=== PATIENT | male | born 1985 | race Caucasian/White ===

== ENCOUNTER 2022-04-22 20:12 | Emergency (ER) | payer SELFPAY ==
[~2022-04-22] VITALS: Ht 185.4 cm; Wt 97.7 kg
[2022-04-22] MEDS ORDERED: iohexol 300mg/ml 100ml inj. ONE (23:33)
[2022-04-23] MEDS ORDERED: ketorolac trometh. 30mg/ml inj. IV ONE
[2022-04-23] MEDS ORDERED: acetaminophen 325mg tablet PO ONE
[2022-04-23] MEDS ORDERED: normal saline 1000ml 1,000 ML IV ONE
[2022-04-23] MEDS ORDERED: AMOX500C2 PO ×2 (00:29→00:32)
[2022-04-23] MEDS ORDERED: ondansetron 4mg rapidly disintigrating tab PO ONE (00:30)
[2022-04-23] MEDS ORDERED: amoxicillin 250mg capsule PO ONE (00:30)
[2022-04-23 00:57] VITALS: BP 127/80
== END 2022-04-23 01:02 | disposition home or self-care (01) ==
LOC: ER 20:13
DX: J02.9 Acute pharyngitis, unspecified (principal); Z88.8 Allergy status to other drugs, medicaments and biological substances; Z88.5 Allergy status to narcotic agent; Z79.899 Other long term (current) drug therapy; Z79.1 Long term (current) use of non-steroidal anti-inflammatories (NSAID); Z79.2 Long term (current) use of antibiotics
CPT/HCPCS: 96374; 99284; J1885; J7030; Q9967

== ENCOUNTER 2022-07-13 00:01 | Emergency (ER) | payer SELFPAY ==
[~2022-07-13] VITALS: Ht 185.4 cm; Wt 88.6 kg
[2022-07-13] MEDS ORDERED: ipratropium/albuterol 3ml nebule NEB ONE (00:15)
[2022-07-13] MEDS ORDERED: dexamethasone inj 6 MG in dextrose 5%-water 100 ML IV ONE (00:25)
[2022-07-13] MEDS ORDERED: LORazepam 2 mg/ml vial IV ONE (00:25)
[2022-07-13] MEDS ORDERED: ALBU8HFA PO (00:52)
[2022-07-13] MEDS: dexamethasone 4mg/ml inj IV SCH ×2 (00:58→01:00)
[2022-07-13 01:15] VITALS: BP 110/70
== END 2022-07-13 01:17 | disposition home or self-care (01) ==
LOC: ER 00:02
DX: J45.901 Unspecified asthma with (acute) exacerbation (principal); Z88.5 Allergy status to narcotic agent; Z88.6 Allergy status to analgesic agent; Z88.8 Allergy status to other drugs, medicaments and biological substances
CPT/HCPCS: 93005; 94640; 96374; 96375; 99284; J1100; J2060; 94760

== ENCOUNTER 2022-08-04 11:28 | Emergency (ER) | payer MEDICAID ==
[~2022-08-04] VITALS: Ht 185.4 cm; Wt 90.9 kg
[~2022-08-04 11:28] MED LIST: ALBU8HFA PO
[2022-08-04] MEDS ORDERED: ipratropium/albuterol 3ml nebule NEB STA (11:47)
[2022-08-04] MEDS ORDERED: magnesium 2GM in 50ml NS 50 ML IV ONE (12:15)
[2022-08-04] MEDS ORDERED: methylPREDNISolone sod succ 125mg/2ml vial IV ONE (12:15)
[2022-08-04] MEDS ORDERED: albuterol 2.5 MG/3 ML nebule CONTNEB PRN (12:35)
[2022-08-04] MEDS ORDERED: ipratropium/albuterol 3ml nebule NEB ONE (13:45)
[2022-08-04] MEDS ORDERED: PRED20TA PO ×2 (14:28)
[2022-08-04] MEDS ORDERED: ALBU6.7H14 INH ×2 (14:28)
[2022-08-04] MEDS ORDERED: FLUT250D IH ×2 (14:28)
--- NOTE | 2022-08-04 14:28 | NUR ---
Paged RT for breathing tx.
[2022-08-04 15:22] VITALS: BP 11/67
[2022-08-07] MEDS ORDERED: NO HOME MEDS (14:50)
[2022-08-11] MEDS ORDERED: LACT1CAP26 PO (14:19)
[2022-08-11] MEDS ORDERED: ALBU6.7H14 INH (14:19)
[2022-08-11] MEDS ORDERED: BUDE10.22 INH (14:19)
[2022-08-11] MEDS ORDERED: CEFD300C3 PO (14:19)
[2022-08-11] MEDS ORDERED: PRED10TA23 PO (14:21)
== END 2022-08-04 15:20 | disposition home or self-care (01) ==
LOC: ER 11:28
DX: J45.909 Unspecified asthma, uncomplicated (principal); Z72.89 Other problems related to lifestyle; Z88.8 Allergy status to other drugs, medicaments and biological substances; Z88.5 Allergy status to narcotic agent; Z79.899 Other long term (current) drug therapy
CPT/HCPCS: 71045; 94640; 94644; 96365; 96375; 99285; J2930; J3475; 94760

== ENCOUNTER 2022-08-06 15:38 | Emergency (ER) | payer MEDICAID ==
[~2022-08-06] VITALS: Ht 185.4 cm; Wt 90.0 kg
[~2022-08-06 15:38] MED LIST changes: +ALBU6.7H14 INH; +FLUT250D IH; +PRED20TA PO
[2022-08-06 15:59] VITALS: BP 124/82
[2022-08-06] MEDS ORDERED: ipratropium/albuterol 3ml nebule NEB ONE (16:05)
[2022-08-06] MEDS ORDERED: predniSONE 20 mg tablet PO ONE (16:50)
[2022-08-06] MEDS ORDERED: CefTRIAXone 1000mg IM Kit (w/lidocaine diluent) IM ONE (16:50)
[2022-08-06] MEDS ORDERED: AMOX-117 PO ×2 (16:56)
[2022-08-06] MEDS: albuterol 2.5 MG/3 ML nebule NEB ONE ×2 (17:04→17:10)
--- NOTE | 2022-08-06 17:05 | NUR ---
Kate xie in ED - 08/06/22 at 1716 by LUCY Unable to administer 5 mg Albuterol SVN treatment. Laura empty- Patient eloped.
[2022-08-07] MEDS ORDERED: NO HOME MEDS (14:50)
[2022-08-11] MEDS ORDERED: ALBU6.7H14 INH (14:19)
[2022-08-11] MEDS ORDERED: CEFD300C3 PO (14:19)
[2022-08-11] MEDS ORDERED: LACT1CAP26 PO (14:19)
[2022-08-11] MEDS ORDERED: BUDE10.22 INH (14:19)
[2022-08-11] MEDS ORDERED: PRED10TA23 PO (14:21)
== END 2022-08-06 17:29 | disposition home or self-care (01) ==
LOC: ER 15:39
DX: J20.9 Acute bronchitis, unspecified (principal); J45.901 Unspecified asthma with (acute) exacerbation; F17.200 Nicotine dependence, unspecified, uncomplicated; Z72.89 Other problems related to lifestyle; Z88.8 Allergy status to other drugs, medicaments and biological substances; Z88.5 Allergy status to narcotic agent; Z79.899 Other long term (current) drug therapy
CPT/HCPCS: 94640; 96372; 99284; J0696; J7512; 94760

== ENCOUNTER 2022-08-22 14:45 | Emergency (ER) | payer MEDICAID ==
[~2022-08-22] VITALS: Ht 185.4 cm; Wt 94.5 kg
[~2022-08-22 14:45] MED LIST changes: -ALBU8HFA PO; +BUDE10.22 INH; +CEFD300C3 PO; -FLUT250D IH; +LACT1CAP26 PO; +PRED10TA23 PO; -PRED20TA PO
[2022-08-22 16:03] LABS: BASOPHILS # (AUTO) 0.1 X10'3 (0-0.2); BASOPHILS % (AUTO) 0.5 % (0-1); EOSINOPHILS % (AUTO) 0.3 % (0-6); HEMATOCRIT 47.3 % (42.0-52.0); HEMOGLOBIN 16.5 g/dl (14.0-17.9); LYMPHOCYTES # (AUTO) 1.9 X10'3 (1.1-4.8); LYMPHOCYTES % (AUTO) 12.6 % (21-51); MEAN CORPUSCULAR HEMOGLOBIN 30.7 PG (27.0-31.0); MEAN CORPUSCULAR HGB CONC 34.8 g/dL (33.0-36.5); MONOCYTES # (AUTO) 0.9 X10'3 (0-0.9); MONOCYTES % (AUTO) 5.7 % (2-12); NEUTROPHILS % (AUTO) 80.9 % (42-75); PLATELET COUNT 240 X10'3 (140-440); RED BLOOD COUNT 5.38 X10'6 (4.70-6.10); RED CELL DISTRIBUTION WIDTH 13.4 % (11.5-14.5); WHITE BLOOD COUNT 14.8 X10'3 (4.5-11.0)
[2022-08-22 16:17] LABS: ALANINE AMINOTRANSFERASE 55 U/L (12-78); ALBUMIN 3.5 G/DL (3.4-5.0); ALBUMIN/GLOBULIN RATIO 1.1 (1.1-1.5); ALKALINE PHOSPHATASE 136 IU/L (46-116); ANION GAP 8 (8-16); ASPARTATE AMINO TRANSFERASE 23 U/L (10-37); BILIRUBIN,TOTAL 1.3 MG/DL (0.1-1.0); BLOOD UREA NITROGEN 18 MG/DL (7-18); CALCIUM 8.8 MG/DL (8.5-10.1); CHLORIDE 102 MMOL/L (99-107); GLUCOSE 201 MG/DL (70-104); SODIUM 135 MMOL/L (135-145); TOTAL CARBON DIOXIDE 24.6 MMOL/L (24-32); TOTAL PROTEIN 6.7 G/DL (6.4-8.2); eGFR > 90 ML/MIN
[2022-08-22 22:50] LABS: CREATINE KINASE 57 U/L (39-308)
[2022-08-23 02:04] VITALS: BP 126/74
== END 2022-08-23 02:11 | disposition home or self-care (01) ==
LOC: ER 14:45
DX: R53.1 Weakness (principal); J45.909 Unspecified asthma, uncomplicated; Z88.5 Allergy status to narcotic agent; Z88.8 Allergy status to other drugs, medicaments and biological substances
CPT/HCPCS: 36415; 71046; 73620; 80053; 82550; 83880; 85025; 93970; 99285

== ENCOUNTER 2022-08-28 04:30 | Emergency (ER) | payer MEDICAID ==
[~2022-08-28] VITALS: Ht 185.4 cm; Wt 90.9 kg
[2022-08-28] MEDS ORDERED: normal saline 1000ML IV soln IVB ONE (04:35)
[2022-08-28] MEDS ORDERED: metoclopramide 5 mg/ml inj IV ONE (04:45)
[2022-08-28] MEDS ORDERED: diphenhydrAMINE 50 mg/ml inj IV ONE (04:45)
[2022-08-28] MEDS ORDERED: LORazepam 2 mg/ml vial IV ONE (04:45)
[2022-08-28] MEDS ORDERED: glycopyrrolate 0.2mg/ml inj IV ONE (04:55)
[2022-08-28 05:20] LABS: BASOPHILS % (AUTO) 0.2 % (0-1); EOSINOPHILS # (AUTO) 0.3 X10'3 (0-0.9); EOSINOPHILS % (AUTO) 1.6 % (0-6); HEMATOCRIT 51.2 % (42.0-52.0); HEMOGLOBIN 17.5 g/dl (14.0-17.9); LYMPHOCYTES # (AUTO) 0.7 X10'3 (1.1-4.8); LYMPHOCYTES % (AUTO) 4.6 % (21-51); MEAN CORPUSCULAR HGB CONC 34.2 g/dL (33.0-36.5); MEAN CORPUSCULAR VOLUME 87.7 FL (78-98); MEAN PLATELET VOLUME 7.3 FL (7.4-10.4); MONOCYTES # (AUTO) 0.6 X10'3 (0-0.9); MONOCYTES % (AUTO) 3.4 % (2-12); NEUTROPHILS # (AUTO) 14.4 X10'3 (1.8-7.7); NEUTROPHILS % (AUTO) 90.2 % (42-75); PLATELET COUNT 200 X10'3 (140-440); RED BLOOD COUNT 5.84 X10'6 (4.70-6.10); RED CELL DISTRIBUTION WIDTH 13.4 % (11.5-14.5)
[2022-08-28 05:34] LABS: ALANINE AMINOTRANSFERASE 36 U/L (12-78); ALBUMIN 3.8 G/DL (3.4-5.0); ALBUMIN/GLOBULIN RATIO 1.2 (1.1-1.5); ALKALINE PHOSPHATASE 132 IU/L (46-116); ANION GAP 13 (8-16); ASPARTATE AMINO TRANSFERASE 31 U/L (10-37); BILIRUBIN,TOTAL 1.2 MG/DL (0.1-1.0); BLOOD UREA NITROGEN 17 MG/DL (7-18); BUN/CREATININE RATIO 22.4 (5.4-32.0); CALCIUM 8.8 MG/DL (8.5-10.1); CHLORIDE 103 MMOL/L (99-107); CREATININE 0.76 MG/DL (0.60-1.10); GLUCOSE 160 MG/DL (70-104); LIPASE 160 U/L (73-393); SODIUM 139 MMOL/L (135-145); TOTAL CARBON DIOXIDE 22.8 MMOL/L (24-32); eGFR > 90 ML/MIN
[2022-08-28 05:36] LABS: POTASSIUM 3.5 MMOL/L (3.5-5.1)
[2022-08-28] MEDS ORDERED: ONDA4TAB12 PO (05:56)
[2022-08-28 06:29] LABS: CLARITY,URINE CLEAR (Clear); COLOR,URINE YELLOW (Yellow); GLUCOSE, URINE NEGATIVE (Neg); KETONES,URINE NEGATIVE (Neg); LEUKOCYTE ESTERASE ,URINE NEGATIVE (Neg); NITRITES, URINE NEGATIVE (Neg); OCCULT BLOOD,URINE NEGATIVE (Neg); PROTEIN,URINE NEGATIVE (Neg); UROBILINOGEN,URINE 0.2 E.U/dL (0.2-1.0)
[2022-08-28 06:32] LABS: UA COLLECTION TYPE URINAL
[2022-08-28 07:01] VITALS: BP 95/54
== END 2022-08-28 07:03 | disposition home or self-care (01) ==
LOC: ER 04:31
DX: R11.2 Nausea with vomiting, unspecified (principal); I10 Essential (primary) hypertension; J45.909 Unspecified asthma, uncomplicated; Z88.1 Allergy status to other antibiotic agents; Z88.5 Allergy status to narcotic agent
CPT/HCPCS: 36415; 80053; 81003; 83690; 84145; 85025; 96361; 96374; 96375; 99284; J1200; J2060; J2765; J3490; J7030

== ENCOUNTER 2022-09-22 21:45 | Emergency (ER) | payer MEDICAID ==
[~2022-09-22] VITALS: Ht 185.4 cm; Wt 91.4 kg
[~2022-09-22 21:45] MED LIST changes: -CEFD300C3 PO; +ONDA4TAB12 PO
[2022-09-22 22:06] VITALS: BP 140/92
[2022-09-22 22:15] LABS: PLATELET COUNT 237 X10'3 (140-440); RED CELL DISTRIBUTION WIDTH 13.3 % (11.5-14.5)
[2022-09-22 22:16] LABS: BASOPHILS # (AUTO) 0.1 X10'3 (0-0.2); EOSINOPHILS # (AUTO) 0.6 X10'3 (0-0.9); EOSINOPHILS % (AUTO) 5.3 % (0-6); HEMATOCRIT 48.4 % (42.0-52.0); HEMOGLOBIN 16.7 g/dl (14.0-17.9); LYMPHOCYTES # (AUTO) 3.2 X10'3 (1.1-4.8); LYMPHOCYTES % (AUTO) 29.1 % (21-51); MEAN CORPUSCULAR HEMOGLOBIN 30.3 PG (27.0-31.0); MEAN CORPUSCULAR HGB CONC 34.6 g/dL (33.0-36.5); MEAN CORPUSCULAR VOLUME 87.7 FL (78-98); MEAN PLATELET VOLUME 7.3 FL (7.4-10.4); MONOCYTES # (AUTO) 0.8 X10'3 (0-0.9); MONOCYTES % (AUTO) 7.2 % (2-12); NEUTROPHILS # (AUTO) 6.2 X10'3 (1.8-7.7); NEUTROPHILS % (AUTO) 57.4 % (42-75); RED BLOOD COUNT 5.51 X10'6 (4.70-6.10); WHITE BLOOD COUNT 10.9 X10'3 (4.5-11.0)
[2022-09-22 22:25] LABS: ALANINE AMINOTRANSFERASE 61 U/L (12-78); ALBUMIN 3.9 G/DL (3.4-5.0); ALBUMIN/GLOBULIN RATIO 1.2 (1.1-1.5); ALKALINE PHOSPHATASE 172 IU/L (46-116); ANION GAP 9 (8-16); ASPARTATE AMINO TRANSFERASE 41 U/L (10-37); BLOOD UREA NITROGEN 15 MG/DL (7-18); BUN/CREATININE RATIO 16.1 (5.4-32.0); CALCIUM 8.9 MG/DL (8.5-10.1); CHLORIDE 104 MMOL/L (99-107); CREATININE 0.93 MG/DL (0.60-1.10); SODIUM 137 MMOL/L (135-145); TOTAL CARBON DIOXIDE 24.5 MMOL/L (24-32); TOTAL PROTEIN 7.1 G/DL (6.4-8.2); eGFR > 90 ML/MIN
[2022-09-22 22:34] LABS: MAGNESIUM 1.6 MG/DL (1.5-2.4)
[2022-09-22 22:35] LABS: GLUCOSE 144 MG/DL (70-104); POTASSIUM 3.2 MMOL/L (3.5-5.1)
[2022-09-22] MEDS ORDERED: PRED10TA PO (23:46)
[2022-09-22] MEDS ORDERED: albuterol 2.5 MG/3 ML nebule NEB ONE (23:50)
[2022-09-22] MEDS ORDERED: predniSONE 20 mg tablet PO ONE (23:50)
[2022-09-22] MEDS ORDERED: POTASSIUM BICARB 20meq eff tab 20 MEQ TABLET.EFF PO STA (23:53)
== END 2022-09-23 00:18 | disposition home or self-care (01) ==
LOC: ER 21:46
DX: J45.901 Unspecified asthma with (acute) exacerbation (principal)
CPT/HCPCS: 36415; 71045; 80053; 83735; 83880; 84484; 85025; 93005; 94640; 99285; J7512

== ENCOUNTER 2022-09-26 11:42 | Emergency (ER) | payer MEDICAID ==
[~2022-09-26] VITALS: Ht 185.4 cm; Wt 95.0 kg
[~2022-09-26 11:42] MED LIST changes: +PRED10TA PO
[2022-09-26 15:35] VITALS: BP 145/76
[2022-09-26] MEDS ORDERED: predniSONE 20 mg tablet PO ONE (15:35)
[2022-09-26] MEDS ORDERED: ipratropium/albuterol 3ml nebule NEB ONE (15:35)
[2022-09-26 16:21] LABS: BASOPHILS # (AUTO) 0.2 X10'3 (0-0.2); BASOPHILS % (AUTO) 1.2 % (0-1); EOSINOPHILS # (AUTO) 0.5 X10'3 (0-0.9); EOSINOPHILS % (AUTO) 3.4 % (0-6); HEMATOCRIT 46.6 % (42.0-52.0); HEMOGLOBIN 16.1 g/dl (14.0-17.9); LYMPHOCYTES % (AUTO) 13.1 % (21-51); MEAN CORPUSCULAR HGB CONC 34.5 g/dL (33.0-36.5); MEAN CORPUSCULAR VOLUME 86.8 FL (78-98); MEAN PLATELET VOLUME 7.5 FL (7.4-10.4); MONOCYTES % (AUTO) 6.4 % (2-12); NEUTROPHILS # (AUTO) 11.4 X10'3 (1.8-7.7); NEUTROPHILS % (AUTO) 75.9 % (42-75); PLATELET COUNT 189 X10'3 (140-440); RED BLOOD COUNT 5.36 X10'6 (4.70-6.10); RED CELL DISTRIBUTION WIDTH 13.1 % (11.5-14.5)
[2022-09-26 16:28] LABS: ALANINE AMINOTRANSFERASE 41 U/L (12-78); ALBUMIN 3.9 G/DL (3.4-5.0); ALBUMIN/GLOBULIN RATIO 1.2 (1.1-1.5); ALKALINE PHOSPHATASE 148 IU/L (46-116); ANION GAP 8 (8-16); ASPARTATE AMINO TRANSFERASE 29 U/L (10-37); BILIRUBIN,TOTAL 2.3 MG/DL (0.1-1.0); BLOOD UREA NITROGEN 9 MG/DL (7-18); BUN/CREATININE RATIO 12.3 (5.4-32.0); CALCIUM 8.9 MG/DL (8.5-10.1); CHLORIDE 103 MMOL/L (99-107); CREATININE 0.73 MG/DL (0.60-1.10); GLUCOSE 106 MG/DL (70-104); POTASSIUM 3.9 MMOL/L (3.5-5.1); SODIUM 137 MMOL/L (135-145); TOTAL CARBON DIOXIDE 26.4 MMOL/L (24-32); TOTAL PROTEIN 7.1 G/DL (6.4-8.2); eGFR > 90 ML/MIN
[2022-09-26] MEDS ORDERED: AMOX-117 PO (16:45)
== END 2022-09-26 16:57 | disposition home or self-care (01) ==
LOC: ER 11:43
DX: J20.9 Acute bronchitis, unspecified (principal); J45.901 Unspecified asthma with (acute) exacerbation; I10 Essential (primary) hypertension; Z72.89 Other problems related to lifestyle; Z88.8 Allergy status to other drugs, medicaments and biological substances; Z88.5 Allergy status to narcotic agent; Z88.6 Allergy status to analgesic agent; Z79.899 Other long term (current) drug therapy
CPT/HCPCS: 36415; 71045; 80053; 85025; 94640; 99284; J7512; 94760

== ENCOUNTER 2022-09-29 07:46 | Emergency (ER) | payer MEDICAID ==
[~2022-09-29] VITALS: Ht 185.4 cm; Wt 97.2 kg
[~2022-09-29 07:46] MED LIST changes: +AMOX-117 PO
[2022-09-29] MEDS ORDERED: bacitracin 15gm ointment TP ONE (09:15)
[2022-09-29] MEDS ORDERED: LIDOCAINE 2%/EPI 1:100,000 inj. Multi-dose 20 ML VIAL IJ ONE (09:15)
[2022-09-29 10:46] VITALS: BP 140/82
== END 2022-09-29 11:47 | disposition home or self-care (01) ==
LOC: ER 07:47
DX: S61.211A Laceration without foreign body of left index finger without damage to nail, initial encounter (principal); I10 Essential (primary) hypertension; J45.909 Unspecified asthma, uncomplicated; Z72.89 Other problems related to lifestyle; Z88.8 Allergy status to other drugs, medicaments and biological substances; Z88.5 Allergy status to narcotic agent; Z79.899 Other long term (current) drug therapy; W22.8XXA Striking against or struck by other objects, initial encounter; Y93.89 Activity, other specified; Y92.89 Other specified places as the place of occurrence of the external cause; Y99.8 Other external cause status
CPT/HCPCS: 12001; 73140; 99283; A6449

== ENCOUNTER 2022-10-21 18:52 | Emergency (ER) | payer MEDICAID ==
[~2022-10-21] VITALS: Ht 185.4 cm; Wt 218.0 kg
[~2022-10-21 18:52] MED LIST changes: -AMOX-117 PO
[2022-10-21 20:05] VITALS: BP 129/86
[2022-10-31] MEDS ORDERED: HYDR-3973 PO (18:51)
== END 2022-10-22 02:13 | disposition left against medical advice (07) ==
LOC: ER 18:52
DX: E11.65 Type 2 diabetes mellitus with hyperglycemia (principal); Z53.21 Procedure and treatment not carried out due to patient leaving prior to being seen by health care provider
CPT/HCPCS: 82948; 99281

== ENCOUNTER 2022-10-31 15:20 | Emergency (ER) | payer MEDICAID ==
[~2022-10-31] VITALS: Ht 185.4 cm; Wt 96.4 kg
[2022-10-31] MEDS ORDERED: ondansetron/PF 4mg/2ml inj IV ONE (15:50)
[2022-10-31] MEDS ORDERED: morphine 4 MG/ML inj SYRINge IV ONE ×2 (15:50→18:50)
[2022-10-31 15:55] LABS: BASOPHILS # (AUTO) 0.1 X10'3 (0-0.2); BASOPHILS % (AUTO) 0.6 % (0-1); EOSINOPHILS # (AUTO) 0.1 X10'3 (0-0.9); EOSINOPHILS % (AUTO) 0.9 % (0-6); HEMOGLOBIN 16.1 g/dl (14.0-17.9); LYMPHOCYTES # (AUTO) 3.4 X10'3 (1.1-4.8); LYMPHOCYTES % (AUTO) 26.4 % (21-51); MEAN CORPUSCULAR HEMOGLOBIN 30.2 PG (27.0-31.0); MEAN CORPUSCULAR HGB CONC 35.1 g/dL (33.0-36.5); MEAN CORPUSCULAR VOLUME 86.1 FL (78-98); MEAN PLATELET VOLUME 6.9 FL (7.4-10.4); MONOCYTES # (AUTO) 0.9 X10'3 (0-0.9); NEUTROPHILS # (AUTO) 8.4 X10'3 (1.8-7.7); NEUTROPHILS % (AUTO) 65.1 % (42-75); PLATELET COUNT 251 X10'3 (140-440); RED BLOOD COUNT 5.34 X10'6 (4.70-6.10); RED CELL DISTRIBUTION WIDTH 12.7 % (11.5-14.5); WHITE BLOOD COUNT 12.8 X10'3 (4.5-11.0)
[2022-10-31] MEDS ORDERED: iohexol 300mg/ml 100ml inj. ONE (16:07)
--- NOTE | 2022-10-31 16:15 | NUR ---
patient to ct.
[2022-10-31 16:16] LABS: ALANINE AMINOTRANSFERASE 38 U/L (12-78); ALBUMIN 4.3 G/DL (3.4-5.0); ALBUMIN/GLOBULIN RATIO 1.5 (1.1-1.5); ALKALINE PHOSPHATASE 123 IU/L (46-116); ANION GAP 12 (8-16); ASPARTATE AMINO TRANSFERASE 31 U/L (10-37); BILIRUBIN,TOTAL 1.2 MG/DL (0.1-1.0); BLOOD UREA NITROGEN 13 MG/DL (7-18); BUN/CREATININE RATIO 12.6 (10.0-20.0); CALCIUM 9.5 MG/DL (8.5-10.1); CHLORIDE 104 MMOL/L (99-107); CREATININE 1.03 MG/DL (0.60-1.10); GLUCOSE 109 MG/DL (70-104); SODIUM 141 MMOL/L (135-145); TOTAL CARBON DIOXIDE 24.6 MMOL/L (24-32); TOTAL PROTEIN 7.2 G/DL (6.4-8.2); eGFR 82 ML/MIN
[2022-10-31 16:17] LABS: POTASSIUM 3.4 MMOL/L (3.5-5.1)
--- NOTE | 2022-10-31 16:36 | NUR ---
patient back in the room from ct.
[2022-10-31] MEDS ORDERED: ketorolac trometh. 30mg/ml inj. IV ONE (17:30)
[2022-10-31 17:40] VITALS: BP 118/71
[2022-10-31] MEDS ORDERED: HYDR-3973 PO ×2 (18:51)
== END 2022-10-31 19:39 | disposition home or self-care (01) ==
LOC: ER 15:20
DX: M54.2 Cervicalgia (principal); M54.50 Low back pain, unspecified; I10 Essential (primary) hypertension; J45.909 Unspecified asthma, uncomplicated; Z72.89 Other problems related to lifestyle; Z88.8 Allergy status to other drugs, medicaments and biological substances; Z88.5 Allergy status to narcotic agent; Z79.899 Other long term (current) drug therapy; V86.99XA Unspecified occupant of other special all-terrain or other off-road motor vehicle injured in nontraffic accident, initial encounter; Y93.89 Activity, other specified; Y92.89 Other specified places as the place of occurrence of the external cause; Y99.8 Other external cause status
CPT/HCPCS: 36415; 70450; 71260; 72125; 74177; 80053; 82948; 85025; 93005; 96374; 96375; 96376; 99285; J1885; J2270; J2405; J3490; L0172; Q9967

== ENCOUNTER 2022-11-02 18:48 | Emergency (ER) | payer MEDICAID ==
[~2022-11-02] VITALS: Ht 185.4 cm; Wt 89.0 kg
[~2022-11-02 18:48] MED LIST changes: +HYDR-3973 PO
[2022-11-02 19:29] VITALS: BP 129/79
[2022-11-03] MEDS ORDERED: HYDR-3972 PO (15:14)
[2022-11-03] MEDS ORDERED: PSEU-259 PO (15:15)
[2022-11-03] MEDS ORDERED: AMOX-580 PO (15:16)
[2022-11-03] MEDS ORDERED: GUAI120L55 PO (15:18)
[2022-11-03] MEDS ORDERED: ATOR20TA66 PO (15:18)
[2022-11-03] MEDS ORDERED: CHOL20003 PO (15:19)
[2022-11-03] MEDS ORDERED: ALBU17AE26 IH (15:20)
[2022-11-03] MEDS ORDERED: ALBU2.5V10 NEB (15:20)
[2022-11-03] MEDS ORDERED: BUDE10.27 IH (15:21)
== END 2022-11-03 00:11 | disposition left against medical advice (07) ==
LOC: ER 18:50
DX: R51.9 Headache, unspecified (principal); Z53.21 Procedure and treatment not carried out due to patient leaving prior to being seen by health care provider
CPT/HCPCS: 99281

== ENCOUNTER 2022-11-03 10:43 | Inpatient (IN) | payer MEDICAID ==
[~2022-11-03] VITALS: Ht 185.4 cm; Wt 89.4 kg
[2022-11-03] MEDS ORDERED: acetaminophen 325mg tablet PO ONE (13:00)
[2022-11-03 13:35] LABS: BASOPHILS # (AUTO) 0.1 X10'3 (0-0.2); BASOPHILS % (AUTO) 1.1 % (0-1); EOSINOPHILS # (AUTO) 0.4 X10'3 (0-0.9); HEMATOCRIT 46.9 % (42.0-52.0); HEMOGLOBIN 16.4 g/dl (14.0-17.9); LYMPHOCYTES # (AUTO) 2.5 X10'3 (1.1-4.8); LYMPHOCYTES % (AUTO) 25.9 % (21-51); MEAN CORPUSCULAR HEMOGLOBIN 30.7 PG (27.0-31.0); MEAN CORPUSCULAR VOLUME 87.5 FL (78-98); MONOCYTES # (AUTO) 0.7 X10'3 (0-0.9); MONOCYTES % (AUTO) 7.1 % (2-12); NEUTROPHILS % (AUTO) 61.9 % (42-75); PLATELET COUNT 231 X10'3 (140-440); RED BLOOD COUNT 5.36 X10'6 (4.70-6.10); RED CELL DISTRIBUTION WIDTH 12.8 % (11.5-14.5); WHITE BLOOD COUNT 9.7 X10'3 (4.5-11.0)
[2022-11-03 13:59] LABS: ALANINE AMINOTRANSFERASE 35 U/L (12-78); ALBUMIN 3.7 G/DL (3.4-5.0); ALBUMIN/GLOBULIN RATIO 1.3 (1.1-1.5); ALKALINE PHOSPHATASE 109 IU/L (46-116); ANION GAP 8 (8-16); ASPARTATE AMINO TRANSFERASE 35 U/L (10-37); BILIRUBIN,TOTAL 1.2 MG/DL (0.1-1.0); BLOOD UREA NITROGEN 12 MG/DL (7-18); BUN/CREATININE RATIO 17.1 (10.0-20.0); CALCIUM 8.7 MG/DL (8.5-10.1); CHLORIDE 104 MMOL/L (99-107); GLUCOSE 103 MG/DL (70-104); POTASSIUM 3.8 MMOL/L (3.5-5.1); SODIUM 137 MMOL/L (135-145); TOTAL PROTEIN 6.6 G/DL (6.4-8.2); eGFR > 90 ML/MIN
[2022-11-03] MEDS ORDERED: iohexol 350MG/ML 100ml bottle IV ONE (15:09)
[2022-11-03] MEDS ORDERED: HYDR-3972 PO (15:14)
[2022-11-03] MEDS ORDERED: PSEU-259 PO (15:15)
[2022-11-03] MEDS ORDERED: AMOX-580 PO (15:16)
[2022-11-03] MEDS ORDERED: GUAI120L55 PO (15:18)
[2022-11-03] MEDS ORDERED: ATOR20TA66 PO (15:18)
[2022-11-03] MEDS ORDERED: CHOL20003 PO (15:19)
[2022-11-03] MEDS ORDERED: ALBU17AE26 IH (15:20)
[2022-11-03] MEDS ORDERED: ALBU2.5V10 NEB (15:20)
[2022-11-03] MEDS ORDERED: BUDE10.27 IH (15:21)
--- NOTE | 2022-11-03 15:34 | NUR ---
Pt to CT at this time
[2022-11-03] MEDS ORDERED: mag hydrox/Alum hydrox/simeth 30ml oral suspension PO PRN (17:10)
[2022-11-03] MEDS ORDERED: magnesium 2GM in 50ml NS 50 ML IV PRN (17:10)
[2022-11-03] MEDS ORDERED: acetaminophen 650mg rectal suppository RC PRN (17:10)
[2022-11-03] MEDS ORDERED: magnesium 4gm in 100ml NS 100 ML IV PRN (17:10)
[2022-11-03] MEDS ORDERED: magnesium Cl slow-release 64mg tablet PO PRN (17:10)
[2022-11-03] MEDS ORDERED: magnesium hydroxide 30ml (MOM) UD suspension PO PRN (17:10)
[2022-11-03] MEDS ORDERED: potassium Cl 20 mEq SR tablet PO PRN ×2 (17:10)
[2022-11-03] MEDS ORDERED: acetaminophen 325mg tablet PO PRN ×2 (17:10)
[2022-11-03] MEDS ORDERED: ondansetron/PF 4mg/2ml inj IV PRN (17:10)
[2022-11-03] MEDS ORDERED: potassium Cl 40MEQ/1/2NS 520ml 520 ML IV PRN (17:10)
[2022-11-03] MEDS ORDERED: HYDROcodone/acetaminophen 5mg/325mg tablet PO PRN (17:10)
[2022-11-03] MEDS: K and/or MAG REPLACEMENT MC SCH (17:44)
[2022-11-03] MEDS: normal saline 1000ml 1,000 ML IV SCH (17:48)
--- NOTE | 2022-11-03 18:21 | NUR ---
Admitting MD to pt bedside at this time
[2022-11-03] MEDS ORDERED: amantadine 100 MG capsule PO ONE (18:30)
[2022-11-03] MEDS ORDERED: methylPREDNISolone sod succ 125mg/2ml vial IV ONE (18:30)
[2022-11-03] MEDS: docusate sod 100mg capsule PO SCH (19:33)
[2022-11-03] MEDS ORDERED: methylPREDNISolone sod succ/PF 40mg inj. IV SCH (20:00)
[2022-11-03] MEDS: albuterol 2.5 MG/3 ML nebule NEB PRN (20:06)
[2022-11-03] MEDS ORDERED: temazepam 15mg capsule PO PRN (21:00)
[2022-11-03 23:20] VITALS: BP 110/52
[2022-11-04] MEDS: HYDROcodone/acetaminophen 10/325mg tab PO PRN ×3 (00:03→20:38)
[2022-11-04 02:00] VITALS: BP 104/61
[2022-11-04] MEDS: normal saline 1000ml 1,000 ML IV SCH ×2 (02:27→15:41)
[2022-11-04] MEDS: methylPREDNISolone sod succ/PF 40mg inj. IV SCH ×4 (02:30→20:40)
[2022-11-04 06:00] VITALS: BP 114/61
--- NOTE | 2022-11-04 06:20 | NUR ---
Patient in room ORTHO 4013. I have received report from Manuela BECERRA and had the opportunity to ask questions and assume patient care.
--- NOTE | 2022-11-04 06:46 | NUR ---
Problems reprioritized. Patient report given, questions answered & plan of care reviewed with xiomara kessler.
[2022-11-04 07:00] LABS: BASOPHILS % (AUTO) 0.2 % (0-1); EOSINOPHILS % (AUTO) 0 % (0-6); HEMATOCRIT 48.1 % (42.0-52.0); HEMOGLOBIN 16.5 g/dl (14.0-17.9); LYMPHOCYTES # (AUTO) 0.8 X10'3 (1.1-4.8); LYMPHOCYTES % (AUTO) 9.1 % (21-51); MEAN CORPUSCULAR HEMOGLOBIN 30.2 PG (27.0-31.0); MEAN CORPUSCULAR HGB CONC 34.3 g/dL (33.0-36.5); MEAN CORPUSCULAR VOLUME 87.8 FL (78-98); MEAN PLATELET VOLUME 7.2 FL (7.4-10.4); MONOCYTES # (AUTO) 0.1 X10'3 (0-0.9); MONOCYTES % (AUTO) 0.9 % (2-12); NEUTROPHILS # (AUTO) 7.6 X10'3 (1.8-7.7); NEUTROPHILS % (AUTO) 89.8 % (42-75); PLATELET COUNT 253 X10'3 (140-440); RED BLOOD COUNT 5.48 X10'6 (4.70-6.10); RED CELL DISTRIBUTION WIDTH 12.5 % (11.5-14.5); WHITE BLOOD COUNT 8.4 X10'3 (4.5-11.0)
[2022-11-04 07:07] LABS: ALANINE AMINOTRANSFERASE 42 U/L (12-78); ALBUMIN 3.7 G/DL (3.4-5.0); ALBUMIN/GLOBULIN RATIO 1.2 (1.1-1.5); ALKALINE PHOSPHATASE 103 IU/L (46-116); ANION GAP 8 (8-16); ASPARTATE AMINO TRANSFERASE 38 U/L (10-37); BILIRUBIN,TOTAL 1.6 MG/DL (0.1-1.0); BLOOD UREA NITROGEN 13 MG/DL (7-18); BUN/CREATININE RATIO 17.1 (10.0-20.0); CALCIUM 9.2 MG/DL (8.5-10.1); CHLORIDE 104 MMOL/L (99-107); CREATININE 0.76 MG/DL (0.60-1.10); GLUCOSE 158 MG/DL (70-104); MAGNESIUM 2.1 MG/DL (1.5-2.4); POTASSIUM 4.5 MMOL/L (3.5-5.1); SODIUM 138 MMOL/L (135-145); TOTAL CARBON DIOXIDE 26.4 MMOL/L (24-32); TOTAL PROTEIN 6.7 G/DL (6.4-8.2); eGFR > 90 ML/MIN
[2022-11-04] MEDS: docusate sod 100mg capsule PO SCH (07:45)
[2022-11-04] MEDS: K and/or MAG REPLACEMENT MC SCH ×2 (08:00→20:00)
[2022-11-04] MEDS ORDERED: amantadine 100 MG capsule PO SCH (08:00)
[2022-11-04] MEDS: albuterol 2.5 MG/3 ML nebule NEB PRN ×2 (08:57→21:20)
[2022-11-04 10:00] VITALS: BP 114/66
--- NOTE | 2022-11-04 10:46 | NUR ---
AGER ID: [phone] MESSAGE: [id number] Sami Echols, PT DMII, on regular diet. Changing from regular to carb control diet. Please notify if not OK. Thanks. Christine [phone]
--- NOTE | 2022-11-04 11:12 | NUR ---
Patient call light was on and when answered, patient stated that he is suppose to work with PT. However, he doesn't feel comfortable with males due to childhood trama.
[2022-11-04] MEDS ORDERED: levoFLOXACIN 500mg tablet PO ONE (12:30)
--- NOTE | 2022-11-04 13:28 | NUR ---
PAGER ID: [phone] MESSAGE: [id number] Sami Echols Unable to perform MRI due to possible foreign body, causes shooting pain/numbness to LFA. Christine [phone]
[2022-11-04] MEDS: ondansetron 4mg rapidly disintigrating tab PO PRN ×2 (13:58)
--- NOTE | 2022-11-04 14:02 | NUR ---
HOSE TURNER documentation: I have reviewed and agree with all interventions, assessments performed and documented by Christine SHARPE.
--- NOTE | 2022-11-04 14:14 | NUR ---
Orientee documentation: I have reviewed and agree with all interventions, assessments performed and documented by Christine SHARPE.
[2022-11-04] MEDS: amantadine 100 MG capsule PO SCH (16:56)
[2022-11-04 18:00] VITALS: BP 115/64
[2022-11-04 22:00] VITALS: BP 109/63
[2022-11-05] MEDS: methylPREDNISolone sod succ/PF 40mg inj. IV SCH ×2 (02:42→07:58)
--- NOTE | 2022-11-05 03:40 | NUR ---
agree with assessment by ANNEMARIE Pantoja.
[2022-11-05 06:00] VITALS: BP 107/54
--- NOTE | 2022-11-05 06:30 | NUR ---
Patient in room ORTHO 4013. I have received report from Scarlett BECERRA and had the opportunity to ask questions and assume patient care. Addendum: 11/05/22 at 0647 by Gretchen Caal LVN ANNEMARIE
--- NOTE | 2022-11-05 06:31 | NUR ---
gave report to Gretchen SHARPE
[2022-11-05 07:40] LABS: BASOPHILS % (AUTO) 0.3 % (0-1); EOSINOPHILS % (AUTO) 0 % (0-6); HEMATOCRIT 46.7 % (42.0-52.0); LYMPHOCYTES # (AUTO) 1.1 X10'3 (1.1-4.8); LYMPHOCYTES % (AUTO) 5.7 % (21-51); MEAN CORPUSCULAR HEMOGLOBIN 30.4 PG (27.0-31.0); MEAN CORPUSCULAR HGB CONC 34.3 g/dL (33.0-36.5); MEAN CORPUSCULAR VOLUME 88.5 FL (78-98); MEAN PLATELET VOLUME 7.3 FL (7.4-10.4); MONOCYTES # (AUTO) 0.4 X10'3 (0-0.9); MONOCYTES % (AUTO) 2.1 % (2-12); NEUTROPHILS # (AUTO) 17.9 X10'3 (1.8-7.7); NEUTROPHILS % (AUTO) 91.9 % (42-75); PLATELET COUNT 253 X10'3 (140-440); RED BLOOD COUNT 5.27 X10'6 (4.70-6.10); RED CELL DISTRIBUTION WIDTH 13.1 % (11.5-14.5); WHITE BLOOD COUNT 19.5 X10'3 (4.5-11.0)
[2022-11-05 08:00] LABS: ALANINE AMINOTRANSFERASE 42 U/L (12-78); ALBUMIN 3.8 G/DL (3.4-5.0); ALBUMIN/GLOBULIN RATIO 1.3 (1.1-1.5); ALKALINE PHOSPHATASE 101 IU/L (46-116); ANION GAP 9 (8-16); ASPARTATE AMINO TRANSFERASE 24 U/L (10-37); BILIRUBIN,TOTAL 1.2 MG/DL (0.1-1.0); BLOOD UREA NITROGEN 13 MG/DL (7-18); BUN/CREATININE RATIO 18.3 (10.0-20.0); CALCIUM 8.9 MG/DL (8.5-10.1); CHLORIDE 105 MMOL/L (99-107); CREATININE 0.71 MG/DL (0.60-1.10); GLUCOSE 172 MG/DL (70-104); MAGNESIUM 2.3 MG/DL (1.5-2.4); POTASSIUM 4.3 MMOL/L (3.5-5.1); SODIUM 139 MMOL/L (135-145); TOTAL CARBON DIOXIDE 24.6 MMOL/L (24-32); TOTAL PROTEIN 6.8 G/DL (6.4-8.2); eGFR > 90 ML/MIN
[2022-11-05] MEDS: K and/or MAG REPLACEMENT MC SCH ×2 (08:00→19:31)
[2022-11-05] MEDS: atorvastatin 20mg tablet PO SCH (08:01)
[2022-11-05] MEDS: amantadine 100 MG capsule PO SCH ×2 (08:01→21:08)
[2022-11-05] MEDS: HYDROcodone/acetaminophen 10/325mg tab PO PRN ×3 (08:02→22:26)
--- NOTE | 2022-11-05 09:50 | NUR ---
PAGER ID: [phone] MESSAGE: [id number]: Tenzin Echols- Pt newly diagnosed DM blood glucose 175, no orders for insulin. Pt does not take it at home. CRAIG Godinez [phone]
[2022-11-05 10:00] VITALS: BP 105/55
[2022-11-05] MEDS ORDERED: insulin Lispro (HumaLOG) vial - multi-dose SQ SCH (11:00)
[2022-11-05] MEDS ORDERED: dextrose 50%-water 50ml dispensing syringe IV PRN ×2 (11:00)
[2022-11-05] MEDS ORDERED: MESSAGE TO PHARMACY PO ONE (11:00)
[2022-11-05] MEDS ORDERED: DEXTROSE 15 GM of carb/4 tabs (each vial/BOTTLE has 4 tablets) PO PRN ×2 (11:00)
[2022-11-05] MEDS ORDERED: ibuprofen tablet 400 MG TABLET PO PRN (11:00)
[2022-11-05] MEDS ORDERED: glucagon, human recombinant 1mg kit SUBCUT PRN (11:00)
[2022-11-05] MEDS: levoFLOXACIN 500mg tablet PO SCH (11:24)
[2022-11-05] MEDS: albuterol 2.5 MG/3 ML nebule NEB SCH ×2 (11:41→15:55)
--- NOTE | 2022-11-05 11:41 | NUR ---
pt. refused 1200 svn
[2022-11-05 13:55] LABS: HEMOGLOBIN A1C 5.8 % (4.5-6.2)
[2022-11-05 14:00] VITALS: BP 111/63
[2022-11-05] MEDS ORDERED: predniSONE 20 mg tablet PO ONE (16:00)
[2022-11-05 18:00] VITALS: BP 118/58
--- NOTE | 2022-11-05 18:00 | NUR ---
HERB DOCTOR documentation: I have reviewed and agree with all interventions, assessments performed and documented by Gretchen SHARPE.
--- NOTE | 2022-11-05 18:00 | NUR ---
Patient in room ORTHO 4013. I have received report from Gretchen SHARPE and had the opportunity to ask questions and assume patient care.
--- NOTE | 2022-11-05 18:32 | NUR ---
Problems reprioritized. Patient report given, questions answered & plan of care reviewed with Elizabeth BECERRA.
[2022-11-05] MEDS: insulin glargine (Lantus) pen - multi-dose SQ SCH (21:00)
[2022-11-05 22:00] VITALS: BP 113/57
--- NOTE | 2022-11-06 03:39 | NUR ---
Pt was assessed at shift change. Pt was educated about all medications administered and side effects. Pt complained of head pain of 8/10 and [place] 10 was administered, during reassessment pt stated the pain level to be 5/10. He is now resting comfortably
--- NOTE | 2022-11-06 05:38 | NUR ---
Problems reprioritized. Patient report given, questions answered & plan of care reviewed with Elli BECERRA.
[2022-11-06 06:00] VITALS: BP 96/56
[2022-11-06 06:49] LABS: BASOPHILS % (AUTO) 0.2 % (0-1); EOSINOPHILS % (AUTO) 0.1 % (0-6); HEMATOCRIT 47.7 % (42.0-52.0); HEMOGLOBIN 16.2 g/dl (14.0-17.9); LYMPHOCYTES # (AUTO) 2.4 X10'3 (1.1-4.8); MEAN CORPUSCULAR HEMOGLOBIN 30.3 PG (27.0-31.0); MEAN CORPUSCULAR HGB CONC 34.1 g/dL (33.0-36.5); MEAN CORPUSCULAR VOLUME 88.9 FL (78-98); MEAN PLATELET VOLUME 7.3 FL (7.4-10.4); MONOCYTES % (AUTO) 5.6 % (2-12); NEUTROPHILS # (AUTO) 14.9 X10'3 (1.8-7.7); NEUTROPHILS % (AUTO) 81.1 % (42-75); PLATELET COUNT 264 X10'3 (140-440); RED BLOOD COUNT 5.36 X10'6 (4.70-6.10); RED CELL DISTRIBUTION WIDTH 13.1 % (11.5-14.5); WHITE BLOOD COUNT 18.4 X10'3 (4.5-11.0)
[2022-11-06 07:05] LABS: ALANINE AMINOTRANSFERASE 43 U/L (12-78); ALBUMIN 3.7 G/DL (3.4-5.0); ALBUMIN/GLOBULIN RATIO 1.2 (1.1-1.5); ALKALINE PHOSPHATASE 95 IU/L (46-116); ANION GAP 10 (8-16); ASPARTATE AMINO TRANSFERASE 27 U/L (10-37); BILIRUBIN,TOTAL 1.1 MG/DL (0.1-1.0); BLOOD UREA NITROGEN 15 MG/DL (7-18); BUN/CREATININE RATIO 20.3 (10.0-20.0); CALCIUM 8.8 MG/DL (8.5-10.1); CHLORIDE 102 MMOL/L (99-107); CREATININE 0.74 MG/DL (0.60-1.10); GLUCOSE 119 MG/DL (70-104); POTASSIUM 3.9 MMOL/L (3.5-5.1); SODIUM 137 MMOL/L (135-145); TOTAL PROTEIN 6.7 G/DL (6.4-8.2); eGFR > 90 ML/MIN
--- NOTE | 2022-11-06 07:25 | NUR ---
Patient in room ORTHO 4013. I have received report from HERNAN Cameron and had the opportunity to ask questions and assume patient care.
[2022-11-06] MEDS: K and/or MAG REPLACEMENT MC SCH ×2 (08:00→18:33)
[2022-11-06] MEDS: atorvastatin 20mg tablet PO SCH (08:38)
[2022-11-06] MEDS: amantadine 100 MG capsule PO SCH ×2 (08:39→19:59)
[2022-11-06] MEDS: predniSONE 20 mg tablet PO SCH (08:39)
[2022-11-06] MEDS: HYDROcodone/acetaminophen 10/325mg tab PO PRN ×3 (08:40→21:11)
[2022-11-06] MEDS: albuterol 2.5 MG/3 ML nebule NEB PRN ×2 (09:00→19:30)
[2022-11-06 10:00] VITALS: BP 116/65
[2022-11-06] MEDS: levoFLOXACIN 500mg tablet PO SCH (11:26)
[2022-11-06 14:00] VITALS: BP 123/52
[2022-11-06] MEDS ORDERED: LORazepam 0.5 MG tablet PO PRN (17:05)
[2022-11-06 18:00] VITALS: BP 122/74
--- NOTE | 2022-11-06 18:00 | NUR ---
Patient in room ORTHO 4013. I have received report from Elli BECERRA and had the opportunity to ask questions and assume patient care.
--- NOTE | 2022-11-06 18:48 | NUR ---
This afternoon Tenzin requested to take a shower. He was situated on a shower chair and allowed to take a shower. Patient reports that while he was on the shower chair he leaned forward and barely hit his head on the side rail. He cannot remember why he leaned forward. He does not report pain, there are no scratches or bruising. He reports he barely touched the rail.
--- NOTE | 2022-11-06 18:50 | NUR ---
Problems reprioritized. Patient report given, questions answered & plan of care reviewed with HERNAN Cameron.
[2022-11-06] MEDS: insulin glargine (Lantus) pen - multi-dose SQ SCH (21:00)
[2022-11-06 23:39] VITALS: BP 114/71
--- NOTE | 2022-11-07 05:07 | NUR ---
Pt has been pleasant this shift with minimal requests from staff. Fillmore was administered at 2100 for head pain, lights were turned off, and tv turned off to minimize any over stimulation. Pt has been sleeping and comfortable all shift.
--- NOTE | 2022-11-07 05:47 | NUR ---
Problems reprioritized. Patient report given, questions answered & plan of care reviewed with Elli BECERRA.
--- NOTE | 2022-11-07 07:17 | NUR ---
Patient in room ORTHO 4013. I have received report from HERNAN Cameron and had the opportunity to ask questions and assume patient care.
[2022-11-07 07:40] LABS: BASOPHILS # (AUTO) 0.1 X10'3 (0-0.2); BASOPHILS % (AUTO) 0.7 % (0-1); EOSINOPHILS # (AUTO) 0.1 X10'3 (0-0.9); EOSINOPHILS % (AUTO) 0.8 % (0-6); HEMATOCRIT 49.1 % (42.0-52.0); HEMOGLOBIN 16.6 g/dl (14.0-17.9); LYMPHOCYTES # (AUTO) 3.7 X10'3 (1.1-4.8); LYMPHOCYTES % (AUTO) 29.5 % (21-51); MEAN CORPUSCULAR HEMOGLOBIN 29.9 PG (27.0-31.0); MEAN CORPUSCULAR HGB CONC 33.8 g/dL (33.0-36.5); MEAN CORPUSCULAR VOLUME 88.5 FL (78-98); MEAN PLATELET VOLUME 7.3 FL (7.4-10.4); MONOCYTES # (AUTO) 0.9 X10'3 (0-0.9); MONOCYTES % (AUTO) 6.9 % (2-12); NEUTROPHILS # (AUTO) 7.8 X10'3 (1.8-7.7); NEUTROPHILS % (AUTO) 62.1 % (42-75); PLATELET COUNT 226 X10'3 (140-440); RED BLOOD COUNT 5.55 X10'6 (4.70-6.10); WHITE BLOOD COUNT 12.5 X10'3 (4.5-11.0)
[2022-11-07 07:44] LABS: ALANINE AMINOTRANSFERASE 38 U/L (12-78); ALBUMIN 3.6 G/DL (3.4-5.0); ALBUMIN/GLOBULIN RATIO 1.2 (1.1-1.5); ALKALINE PHOSPHATASE 97 IU/L (46-116); ANION GAP 9 (8-16); ASPARTATE AMINO TRANSFERASE 23 U/L (10-37); BILIRUBIN,TOTAL 0.9 MG/DL (0.1-1.0); BLOOD UREA NITROGEN 15 MG/DL (7-18); BUN/CREATININE RATIO 18.1 (10.0-20.0); CALCIUM 8.9 MG/DL (8.5-10.1); CHLORIDE 104 MMOL/L (99-107); CREATININE 0.83 MG/DL (0.60-1.10); GLUCOSE 100 MG/DL (70-104); MAGNESIUM 2.2 MG/DL (1.5-2.4); POTASSIUM 3.7 MMOL/L (3.5-5.1); SODIUM 140 MMOL/L (135-145); TOTAL CARBON DIOXIDE 27.1 MMOL/L (24-32); TOTAL PROTEIN 6.6 G/DL (6.4-8.2); eGFR > 90 ML/MIN
[2022-11-07] MEDS: K and/or MAG REPLACEMENT MC SCH ×2 (08:00→19:18)
[2022-11-07] MEDS: predniSONE 20 mg tablet PO SCH (08:00)
[2022-11-07] MEDS: amantadine 100 MG capsule PO SCH ×2 (09:19→19:47)
[2022-11-07] MEDS: atorvastatin 20mg tablet PO SCH (09:21)
--- NOTE | 2022-11-07 09:56 | NUR ---
DM consult: Per [facility] pt with newly diagnosed T2DM however no documented h/o DM at previous admit in July with A1c 5.6% 08/07 and current A1c is 5.8% which does not meet diabetes diagnostic criteria per ADA guidelines. Pt admit for postconcussive syndrome and asthma exacerbation. Currently on a CHO controlled diet and eating well, documented with 100% PO intake of all meals with the exception of 75% PO intake of dinner 11/06. Despite good PO intake pt not meeting estimated nutrient needs d/t restrictive diet. Paged with recommendation to liberalize to regular diet given current A1c and A1c hx with pt receiving Prednisone and not requiring insulin coverage since admit. D/w dietary to send additional protein with meals for satiety which may be discontinued if diet is liberalized to regular. LBM 11/06. Will continue to follow and monitor need for further nutrition intervention. Recommendations: 1) Liberalize to regular diet; A1c 5.8% does not meet criteria for DM dx per ADA guidelines and pt not requiring insulin coverage while on Prednisone 2) Doubles eggs WB, double meat BIDLD for satiety and to assist with meeting estimated nutrient needs, may discontinue if diet is liberalized to regular 3) Bowel care PRN 4) Weekly scaled weights Addendum: 11/07/22 at [address] Amended: Links added.
[2022-11-07 10:00] VITALS: BP 116/56
[2022-11-07] MEDS: levoFLOXACIN 500mg tablet PO SCH (11:04)
[2022-11-07 14:00] VITALS: BP 114/72
[2022-11-07] MEDS: albuterol 2.5 MG/3 ML nebule NEB PRN ×2 (15:00→20:57)
[2022-11-07 18:00] VITALS: BP 116/59
--- NOTE | 2022-11-07 18:25 | NUR ---
Problems reprioritized. Patient report given, questions answered & plan of care reviewed with HERNAN Short.
[2022-11-07] MEDS: insulin glargine (Lantus) pen - multi-dose SQ SCH (19:49)
--- NOTE | 2022-11-07 20:08 | NUR ---
Called Dr. Flood - got order to DC accuchecks since A1C 5.8
[2022-11-07 22:00] VITALS: BP 116/69
[2022-11-07] MEDS: HYDROcodone/acetaminophen 10/325mg tab PO PRN (22:02)
--- NOTE | 2022-11-08 06:27 | NUR ---
Patient in room ORTHO 4013. I have received report from Deja BECERRA and had the opportunity to ask questions and assume patient care.
[2022-11-08 06:31] LABS: BASOPHILS % (AUTO) 0.3 % (0-1); EOSINOPHILS # (AUTO) 0.2 X10'3 (0-0.9); EOSINOPHILS % (AUTO) 1.1 % (0-6); HEMOGLOBIN 16.7 g/dl (14.0-17.9); LYMPHOCYTES # (AUTO) 3.6 X10'3 (1.1-4.8); MEAN CORPUSCULAR HEMOGLOBIN 30.8 PG (27.0-31.0); MEAN CORPUSCULAR HGB CONC 34.8 g/dL (33.0-36.5); MEAN CORPUSCULAR VOLUME 88.7 FL (78-98); MONOCYTES # (AUTO) 0.9 X10'3 (0-0.9); MONOCYTES % (AUTO) 6.8 % (2-12); NEUTROPHILS # (AUTO) 9.1 X10'3 (1.8-7.7); NEUTROPHILS % (AUTO) 65.8 % (42-75); PLATELET COUNT 217 X10'3 (140-440); RED BLOOD COUNT 5.41 X10'6 (4.70-6.10); RED CELL DISTRIBUTION WIDTH 12.9 % (11.5-14.5); WHITE BLOOD COUNT 13.8 X10'3 (4.5-11.0)
--- NOTE | 2022-11-08 06:33 | NUR ---
Problems reprioritized. Patient report given, questions answered & plan of care reviewed with ANNEMARIE Fontana.
[2022-11-08 07:01] LABS: ANION GAP 11 (8-16); BLOOD UREA NITROGEN 14 MG/DL (7-18); BUN/CREATININE RATIO 20.3 (10.0-20.0); CHLORIDE 103 MMOL/L (99-107); CREATININE 0.69 MG/DL (0.60-1.10); GLUCOSE 106 MG/DL (70-104); POTASSIUM 3.6 MMOL/L (3.5-5.1); SODIUM 138 MMOL/L (135-145)
[2022-11-08 07:02] LABS: ALANINE AMINOTRANSFERASE 37 U/L (12-78); ALBUMIN 3.6 G/DL (3.4-5.0); ALBUMIN/GLOBULIN RATIO 1.2 (1.1-1.5); ALKALINE PHOSPHATASE 100 IU/L (46-116); ASPARTATE AMINO TRANSFERASE 27 U/L (10-37); BILIRUBIN,TOTAL 1.1 MG/DL (0.1-1.0); CALCIUM 8.8 MG/DL (8.5-10.1); TOTAL PROTEIN 6.6 G/DL (6.4-8.2); eGFR > 90 ML/MIN
[2022-11-08] MEDS: albuterol 2.5 MG/3 ML nebule NEB PRN (07:02)
--- NOTE | 2022-11-08 07:47 | NUR ---
Pt BS obtained per pt request. Pt informed me his most recent A1C at his primary was "8 something" and was told he was diabetic. Pt was unable to tell me what his BS levels are at home and how long ago that A1C from his primary was taken. Pt was educated on the AHA guidelines to DM II and that his current A1C and previous A1C from 07/2022 and blood sugars levels indicate the diabetes he may have been diagnosed with is now well controlled with his diet and require no interventions from staff currently. Pt was educated on hypo/hyperglycemic s/s to report to staff if he experiences them. Pt was informed staff will not be taking AC/HS BS on him anymore per MD orders, unless pt becomes symptomatic.
[2022-11-08] MEDS: K and/or MAG REPLACEMENT MC SCH (08:00)
[2022-11-08] MEDS: amantadine 100 MG capsule PO SCH (08:10)
[2022-11-08] MEDS: atorvastatin 20mg tablet PO SCH (08:11)
[2022-11-08] MEDS: predniSONE 20 mg tablet PO SCH (08:11)
[2022-11-08] MEDS ORDERED: LEVO-65 PO (11:00)
[2022-11-08] MEDS ORDERED: AMA100C PO (11:00)
[2022-11-08] MEDS: levoFLOXACIN 500mg tablet PO SCH (11:00)
[2022-11-08] MEDS ORDERED: PRED20TA PO (11:00)
--- NOTE | 2022-11-08 13:39 | NUR ---
PAGER ID: [phone] MESSAGE: [phone] [facility] not filling amantadine, please call akin [phone]
--- NOTE | 2022-11-08 14:24 | NUR ---
pt dc to home via private vehicle. Pt PIV dc prior to dc with no complications. Pt alert, oriented, and stable at time of discharge. Pt verbally agreeable to all dc instructions and educations provided. Prescriptions escripted to [address]. pt escorted out of facility by staff with FWW.
--- NOTE | 2022-11-08 18:11 | NUR ---
MOTTLER OPERATOR documentation: I have reviewed and agree with all interventions, assessments performed and documented by Natali SHARPE, no new finding noted.
== END 2022-11-08 14:23 | disposition home or self-care (01) | DRG 54 ==
LOC: ER 10:44 → ED HOLD 17:11 → ORTHO 4S 23:18
PROVIDERS: ADMIT Family Medicine; ATTEND Family Medicine
PROC: B3251ZZ Computerized Tomography (CT Scan) of Bilateral Common Carotid Arteries using Low Osmolar Contrast (ICD-10-PCS; principal; 2022-11-03)
PROC: B32G1ZZ Computerized Tomography (CT Scan) of Bilateral Vertebral Arteries using Low Osmolar Contrast (ICD-10-PCS; 2022-11-03)
PROC: B32R1ZZ Computerized Tomography (CT Scan) of Intracranial Arteries using Low Osmolar Contrast (ICD-10-PCS; 2022-11-03)
PROC: B3281ZZ Computerized Tomography (CT Scan) of Bilateral Internal Carotid Arteries using Low Osmolar Contrast (ICD-10-PCS; 2022-11-03)
DX: F07.81 Postconcussional syndrome (principal); J45.901 Unspecified asthma with (acute) exacerbation; S09.90XA Unspecified injury of head, initial encounter; R73.03 Prediabetes; E78.5 Hyperlipidemia, unspecified; I10 Essential (primary) hypertension; M54.9 Dorsalgia, unspecified; Z88.8 Allergy status to other drugs, medicaments and biological substances; Z79.899 Other long term (current) drug therapy; Y93.89 Activity, other specified; Y92.89 Other specified places as the place of occurrence of the external cause; Y99.8 Other external cause status; V86.55XA Driver of 3- or 4- wheeled all-terrain vehicle (ATV) injured in nontraffic accident, initial encounter
CPT/HCPCS: 36415; 70450; 70496; 70498; 71046; 72125; 72131; 73030; 73090; 80053; 82948; 83036; 83735; 85025; 87081; 94640; 94760; 97110; 97116; 97161; 97530; 99285; A6258; G0378; J1815; J2920; J2930; J3490; J7030; J7512; Q9967

== ENCOUNTER 2022-11-11 04:33 | Emergency (ER) | payer MEDICAID ==
[~2022-11-11] VITALS: Ht 185.4 cm; Wt 93.2 kg
[~2022-11-11 04:33] MED LIST changes: +ALBU17AE26 IH; +ALBU2.5V10 NEB; -ALBU6.7H14 INH; +AMA100C PO; +ATOR20TA66 PO; -BUDE10.22 INH; +BUDE10.27 IH; +CHOL20003 PO; -HYDR-3973 PO; -LACT1CAP26 PO; +LEVO-65 PO; -ONDA4TAB12 PO; -PRED10TA PO; -PRED10TA23 PO; +PRED20TA PO
[2022-11-11] MEDS ORDERED: proCHLORperazine 10 MG/2 ml inj IV ONE (05:10)
[2022-11-11] MEDS ORDERED: ketorolac trometh. 30mg/ml inj. IV ONE (05:10)
[2022-11-11] MEDS ORDERED: SUMAtriptan succ. 6 MG/0.5ml vial SQ ONE (05:10)
[2022-11-11] MEDS ORDERED: normal saline 1000ml 1,000 ML IV ONE (05:10)
[2022-11-11] MEDS ORDERED: acetaminophen 325mg tablet PO ONE (05:10)
[2022-11-11] MEDS ORDERED: diphenhydrAMINE 50 mg/ml inj IV ONE (05:10)
[2022-11-11 07:11] VITALS: BP 108/58
[2022-11-12] MEDS ORDERED: HYDR-3972 PO (19:02)
[2022-11-12] MEDS ORDERED: PSEU-259 PO (19:03)
[2022-11-12] MEDS ORDERED: GUAI120L55 PO (19:04)
== END 2022-11-11 07:13 | disposition home or self-care (01) ==
LOC: ER 04:34
DX: G43.909 Migraine, unspecified, not intractable, without status migrainosus (principal); I10 Essential (primary) hypertension; J45.909 Unspecified asthma, uncomplicated; Z88.8 Allergy status to other drugs, medicaments and biological substances; Z88.6 Allergy status to analgesic agent; Z79.899 Other long term (current) drug therapy; Z91.011 Allergy to milk products
CPT/HCPCS: 96361; 96372; 96374; 96375; 99284; J0780; J1200; J1885; J3030; J7030

== ENCOUNTER 2022-11-12 14:00 | Inpatient (IN) | payer MEDICAID ==
[~2022-11-12] VITALS: Ht 185.4 cm; Wt 96.0 kg
[2022-11-12] MEDS ORDERED: normal saline 1000ml 1,000 ML IV ONE ×3 (14:45)
[2022-11-12] MEDS ORDERED: CefTRIAXone 2gm/D5W 50ml BAG 50 ML IV ONE (14:45)
[2022-11-12] MEDS ORDERED: acetaminophen 325mg tablet PO ONE (14:45)
[2022-11-12] MEDS ORDERED: azithromycin/NS 500mg/250ml 250 ML IV ONE (14:45)
[2022-11-12 14:47] LABS: BASOPHILS % (AUTO) 0.2 % (0-1); LYMPHOCYTES # (AUTO) 0.7 X10'3 (1.1-4.8); MEAN CORPUSCULAR HGB CONC 33.9 g/dL (33.0-36.5); WHITE BLOOD COUNT 21.7 X10'3 (4.5-11.0)
[2022-11-12 14:48] LABS: CLARITY,URINE CLEAR (Clear); COLOR,URINE YELLOW (Yellow); GLUCOSE, URINE NEGATIVE (Neg); KETONES,URINE >=80 mg/dl (Neg); LEUKOCYTE ESTERASE ,URINE NEGATIVE (Neg); NITRITES, URINE NEGATIVE (Neg); OCCULT BLOOD,URINE NEGATIVE (Neg); PROTEIN,URINE NEGATIVE (Neg)
[2022-11-12 14:49] LABS: UA COLLECTION TYPE URINAL
[2022-11-12 14:51] LABS: EOSINOPHILS % (AUTO) 0.1 % (0-6); HEMATOCRIT 47.5 % (42.0-52.0); HEMOGLOBIN 16.1 g/dl (14.0-17.9); MEAN CORPUSCULAR HEMOGLOBIN 29.9 PG (27.0-31.0); MEAN CORPUSCULAR VOLUME 88.1 FL (78-98); MEAN PLATELET VOLUME 7.2 FL (7.4-10.4); MONOCYTES # (AUTO) 1.3 X10'3 (0-0.9); MONOCYTES % (AUTO) 5.8 % (2-12); NEUTROPHILS # (AUTO) 19.7 X10'3 (1.8-7.7); NEUTROPHILS % (AUTO) 90.9 % (42-75); PLATELET COUNT 195 X10'3 (140-440); RED CELL DISTRIBUTION WIDTH 12.8 % (11.5-14.5)
[2022-11-12] MEDS ORDERED: albuterol 2.5 MG/3 ML nebule NEB ONE (15:00)
[2022-11-12] MEDS ORDERED: methylPREDNISolone sod succ 125mg/2ml vial IV ONE (15:00)
[2022-11-12 15:08] LABS: ALANINE AMINOTRANSFERASE 199 U/L (12-78); ALBUMIN 3.5 G/DL (3.4-5.0); ALKALINE PHOSPHATASE 112 IU/L (46-116); ANION GAP 10 (8-16); ASPARTATE AMINO TRANSFERASE 109 U/L (10-37); BILIRUBIN,TOTAL 5.1 MG/DL (0.1-1.0); BLOOD UREA NITROGEN 12 MG/DL (7-18); BUN/CREATININE RATIO 15.2 (10.0-20.0); CALCIUM 8.7 MG/DL (8.5-10.1); CHLORIDE 100 MMOL/L (99-107); CREATININE 0.79 MG/DL (0.60-1.10); GLUCOSE 129 MG/DL (70-104); POTASSIUM 3.8 MMOL/L (3.5-5.1); SODIUM 133 MMOL/L (135-145); eGFR > 90 ML/MIN
[2022-11-12 15:12] LABS: TOTAL PROTEIN 6.9 G/DL (6.4-8.2)
--- NOTE | 2022-11-12 15:17 | NUR ---
RT AT BEDSIDE GIVING TX. EKG WILL BE DONE ONCE TX IS COMPLETE.
[2022-11-12] MEDS ORDERED: VANCOmycin 1250MG/NS 250ml Bag 250 ML IV SCH (18:19)
[2022-11-12] MEDS ORDERED: potassium Cl 20 mEq SR tablet PO PRN ×2 (18:20)
[2022-11-12] MEDS ORDERED: magnesium Cl slow-release 64mg tablet PO PRN (18:20)
[2022-11-12] MEDS ORDERED: diphenhydrAMINE 25mg capsule PO PRN (18:20)
[2022-11-12] MEDS ORDERED: magnesium 4gm in 100ml NS 100 ML IV PRN (18:20)
[2022-11-12] MEDS: normal saline 1000ml 1,000 ML IV SCH (18:20)
[2022-11-12] MEDS ORDERED: potassium Cl 40MEQ/1/2NS 520ml 520 ML IV PRN (18:20)
[2022-11-12] MEDS ORDERED: magnesium hydroxide 30ml (MOM) UD suspension PO PRN (18:20)
[2022-11-12] MEDS ORDERED: acetaminophen 650mg rectal suppository RC PRN (18:20)
[2022-11-12] MEDS ORDERED: acetaminophen 325mg tablet PO PRN ×2 (18:20)
[2022-11-12] MEDS ORDERED: mag hydrox/Alum hydrox/simeth 30ml oral suspension PO PRN (18:20)
[2022-11-12] MEDS ORDERED: bisacodyl 10mg suppository rectal RC PRN (18:20)
[2022-11-12] MEDS ORDERED: magnesium 2GM in 50ml NS 50 ML IV PRN (18:20)
[2022-11-12] MEDS ORDERED: HYDROcodone/acetaminophen 5mg/325mg tablet PO PRN (18:20)
[2022-11-12] MEDS ORDERED: morphine 4 MG/ML inj SYRINge IV ONE (18:25)
[2022-11-12] MEDS ORDERED: NS IV SCH (18:30)
[2022-11-12] MEDS ORDERED: ACYCLOVIR IV SCH (18:30)
[2022-11-12] MEDS ORDERED: ondansetron/PF 4mg/2ml inj IV ONE (18:32)
[2022-11-12 18:59] LABS: APPEARANCE,CSF CLEAR; CSF SUPERNATANT COLOR COLORLESS; CSF VOLUME 3.5 ML; TUBE# COUNTED 4
[2022-11-12 19:01] LABS: CSF RBC 0 /CU MM (0); CSF WBC CT 3 /CU MM (0-5)
[2022-11-12] MEDS ORDERED: HYDR-3972 PO (19:02)
[2022-11-12] MEDS ORDERED: PSEU-259 PO (19:03)
[2022-11-12] MEDS ORDERED: GUAI120L55 PO (19:04)
[2022-11-12 19:22] LABS: GLUCOSE,CSF 74 MG/DL (40-75); TOTAL PROTEIN,CSF 45 MG/DL (15-45)
[2022-11-12] MEDS: docusate sod 100mg capsule PO SCH (19:39)
[2022-11-12] MEDS: HYDROcodone/acetaminophen 10/325mg tab PO PRN (19:40)
[2022-11-12] MEDS: ondansetron/PF 4mg/2ml inj IV PRN (19:40)
[2022-11-12] MEDS: heparin, porcine 5000 units/ml vial SQ SCH (19:44)
[2022-11-12] MEDS: K and/or MAG REPLACEMENT MC SCH (20:00)
[2022-11-12] MEDS ORDERED: albuterol 2.5 MG/3 ML nebule NEB PRN ×2 (21:30)
[2022-11-12 22:00] VITALS: BP 113/62
--- NOTE | 2022-11-12 23:31 | NUR ---
PT BLOOD GLUCOSE WAS 261 SAID HE ATE CAKE IN ER AND REFUSED INSULIN AT THIS TIME.
[2022-11-13] MEDS: acyclovir inj 1,000 MG in normal saline 250ml IV soln 250 ML IV SCH ×4 (00:56→23:39)
[2022-11-13] MEDS: normal saline 1000ml 1,000 ML IV SCH ×4 (02:20→23:46)
[2022-11-13 03:17] VITALS: BP 93/51
[2022-11-13] MEDS: HYDROcodone/acetaminophen 10/325mg tab PO PRN ×4 (03:17→19:56)
--- NOTE | 2022-11-13 06:14 | NUR ---
PT HAD AN EPISODE OF DIAPHORESIS ACCUCHECKED AND BLOOD SUGAR WAS 179 TEMPERATURE WAS 97.8 ORALLY. PATIENT WAS RESTING AND WAS IN NO DISTRESS.
[2022-11-13 06:30] LABS: ALANINE AMINOTRANSFERASE 147 U/L (12-78); ALBUMIN 2.8 G/DL (3.4-5.0); ALBUMIN/GLOBULIN RATIO 0.9 (1.1-1.5); ALKALINE PHOSPHATASE 103 IU/L (46-116); ANION GAP 6 (8-16); ASPARTATE AMINO TRANSFERASE 53 U/L (10-37); BILIRUBIN,TOTAL 2.8 MG/DL (0.1-1.0); BLOOD UREA NITROGEN 13 MG/DL (7-18); BUN/CREATININE RATIO 20.3 (10.0-20.0); CALCIUM 8.2 MG/DL (8.5-10.1); CHLORIDE 108 MMOL/L (99-107); CHOL/HDL RATIO 3.2 (0.00-4.99); CHOLESTEROL 121 MG/DL (0-200); CREATININE 0.64 MG/DL (0.60-1.10); GLUCOSE 173 MG/DL (70-104); HDL CHOLESTEROL 38 MG/DL (35-60); LDL CHOLESTEROL 65 MG/DL (50-100); MAGNESIUM 2.3 MG/DL (1.5-2.4); PHOSPHORUS 2.8 MG/DL (2.3-4.5); POTASSIUM 4.1 MMOL/L (3.5-5.1); SODIUM 136 MMOL/L (135-145); TOTAL CARBON DIOXIDE 22.5 MMOL/L (24-32); TRIGLYCERIDES 90 MG/DL (20-135); eGFR > 90 ML/MIN
[2022-11-13 06:35] LABS: BASOPHILS % (AUTO) 0.1 % (0-1); EOSINOPHILS % (AUTO) 0 % (0-6); HEMOGLOBIN 14.9 g/dl (14.0-17.9); LYMPHOCYTES # (AUTO) 0.7 X10'3 (1.1-4.8); LYMPHOCYTES % (AUTO) 5.1 % (21-51); MEAN CORPUSCULAR HEMOGLOBIN 30.2 PG (27.0-31.0); MEAN CORPUSCULAR HGB CONC 33.8 g/dL (33.0-36.5); MEAN CORPUSCULAR VOLUME 89.4 FL (78-98); MEAN PLATELET VOLUME 7.5 FL (7.4-10.4); MONOCYTES # (AUTO) 0.6 X10'3 (0-0.9); MONOCYTES % (AUTO) 3.9 % (2-12); NEUTROPHILS # (AUTO) 13.3 X10'3 (1.8-7.7); NEUTROPHILS % (AUTO) 90.9 % (42-75); PLATELET COUNT 163 X10'3 (140-440); RED BLOOD COUNT 4.92 X10'6 (4.70-6.10); WHITE BLOOD COUNT 14.6 X10'3 (4.5-11.0)
--- NOTE | 2022-11-13 06:44 | NUR ---
Problems reprioritized. Patient report given, questions answered & plan of care reviewed with HERNAN DOUGHERTY.
[2022-11-13 07:12] VITALS: BP 102/55
[2022-11-13] MEDS: K and/or MAG REPLACEMENT MC SCH ×2 (07:14→19:53)
[2022-11-13] MEDS: atorvastatin 20mg tablet PO SCH (07:27)
[2022-11-13] MEDS: cholecalciferol (vitamin D3) 1,000 unit (25mcg) tablet PO SCH (07:27)
[2022-11-13] MEDS: heparin, porcine 5000 units/ml vial SQ SCH ×2 (07:27→20:00)
[2022-11-13] MEDS: budesonide 0.5mg/2ml UD nebule IH SCH ×2 (07:42→19:33)
--- NOTE | 2022-11-13 07:42 | NUR ---
Pt. refused morning SVN
[2022-11-13] MEDS: docusate sod 100mg capsule PO SCH ×2 (08:00→20:00)
[2022-11-13] MEDS: vancomycin/NS 1 GM ADD-VANTAGE 250 ML IV SCH ×2 (08:48→16:52)
[2022-11-13] MEDS ORDERED: GADOTERATE MEGLUMINE 7.5 MMOL/15 ML VIAL IV ONE (10:07)
[2022-11-13 11:00] VITALS: BP 106/63
[2022-11-13 13:23] LABS: CLARITY,URINE CLEAR (Clear); COLOR,URINE STRAW (Yellow); GLUCOSE, URINE NEGATIVE (Neg); KETONES,URINE NEGATIVE (Neg); LEUKOCYTE ESTERASE ,URINE NEGATIVE (Neg); NITRITES, URINE NEGATIVE (Neg); OCCULT BLOOD,URINE NEGATIVE (Neg); PH,URINE 6.5 (4.8-8.0); PROTEIN,URINE NEGATIVE (Neg); UROBILINOGEN,URINE 0.2 E.U/dL (0.2-1.0)
[2022-11-13 13:25] LABS: UA COLLECTION TYPE NON-SPECIFIED
[2022-11-13 13:31] LABS: URINE AMPHETAMINE SCREEN NEGATIVE (Neg); URINE BARBITUATE SCREEN NEGATIVE (Neg); URINE BENZODIAZEPINES SCREEN NEGATIVE (Neg); URINE CANNABINOID SCREEN NEGATIVE (Neg); URINE COCAINE SCREEN NEGATIVE (Neg); URINE METHADONE SCREEN NEGATIVE (Neg); URINE OPIATE SCREEN POSITIVE (Neg); URINE PHENCYCLIDINE SCREEN NEGATIVE (Neg)
[2022-11-13] MEDS: CefTRIAXone 2gm/D5W 50ml BAG 50 ML IV SCH (14:23)
[2022-11-13 15:00] VITALS: BP 111/75
--- NOTE | 2022-11-13 15:19 | NUR ---
PAGED DR CUEVAS RE: Message: LUIS ARMANDO SCHWARTZ. MRI WANTS TO KNOW IF YOU WANT THEM TO DO C SPINE ALONG WITH A T SPINE? MRI CANNOT BE DONE FOR 24 HRS SINCE HE HAD CONTRAST TODAY ALREADY. LADONNA [id number]
--- NOTE | 2022-11-13 16:06 | NUR ---
PAGER ID: [phone] MESSAGE: JANAE CAMACHO. [facility] 710. LADONNA [phone]
--- NOTE | 2022-11-13 18:30 | NUR ---
Patient in room U 3022. I have received report from HERNAN Jordan and had the opportunity to ask questions and assume patient care. Addendum: 11/13/22 at 1851 by Yojana Edgar RN Amended: Links added.
[2022-11-13 18:45] VITALS: BP 127/86
--- NOTE | 2022-11-13 19:03 | NUR ---
Pt was upset he was getting plastic silverware on tray. order had been completed, dietary notified. pt is off isolation. req rt for some sob, rt paged. Addendum: 11/13/22 at 1907 by Yojana Edgar RN Amended: Links added. Addendum: 11/13/22 at 1910 by Yojana Edgar RN Per report Dr. Mccormack stated to remove pt from Isolation, discussed with gali Wills and confirmed pt in isolation for 24 hours only and can be dc'd now.
--- NOTE | 2022-11-13 21:35 | NUR ---
Resting with eyes closed at this time rr wnl 18. has eye mask on and stated earlier not to wake him up if possible. Addendum: 11/13/22 at 2136 by Yojana Edgar RN Amended: Links added.
[2022-11-13 22:00] VITALS: BP 111/70
--- NOTE | 2022-11-13 22:00 | NUR ---
Pt states not to wake him up for vital signs. Does not want to be awakened by staff. Pt will call if anything needed. states okay t round on him quietly. Addendum: 11/14/22 at 0110 by Yojana Edgar RN Amended: Links added.
[2022-11-13] MEDS: morphine 2 MG/ML inj. syringe IV PRN (22:05)
[2022-11-14] MEDS: vancomycin/NS 1 GM ADD-VANTAGE 250 ML IV SCH ×2 (00:39→10:08)
--- NOTE | 2022-11-14 06:16 | NUR ---
Problems reprioritized. Patient report given, questions answered & plan of care reviewed with Nikki BECERRA. Addendum: 11/14/22 at 0617 by Yojana Edgar RN Amended: Links added.
[2022-11-14 06:45] VITALS: BP 120/66
[2022-11-14] MEDS: morphine 2 MG/ML inj. syringe IV PRN ×2 (06:53→12:29)
[2022-11-14] MEDS: acyclovir inj 1,000 MG in normal saline 250ml IV soln 250 ML IV SCH (06:56)
--- NOTE | 2022-11-14 07:00 | NUR ---
Patient in room PCU 3022. I have received report from daron perry and had the opportunity to ask questions and assume patient care.
[2022-11-14] MEDS ORDERED: VANCOMYCIN LEVEL IV ONE (07:30)
--- NOTE | 2022-11-14 07:38 | NUR ---
PAGED DR CUEVAS RE: Message: LUIS ARMANDO SCHWARTZ. PT C/O 04/20 CHEST PAIN THIS AM. EKG DONE AND REVIEWED BY ER MD. NO STEMI. MORPHIINE GIVEN. PAIN IMPROVED. LADONNA [phone] TELE
[2022-11-14] MEDS: budesonide 0.5mg/2ml UD nebule IH SCH ×2 (08:00→20:00)
[2022-11-14] MEDS: K and/or MAG REPLACEMENT MC SCH ×2 (08:00→20:00)
[2022-11-14] MEDS: docusate sod 100mg capsule PO SCH ×2 (08:00→20:00)
[2022-11-14] MEDS: CefTRIAXone 2gm/D5W 50ml BAG 50 ML IV SCH (08:15)
[2022-11-14] MEDS: atorvastatin 20mg tablet PO SCH (08:15)
[2022-11-14] MEDS: cholecalciferol (vitamin D3) 1,000 unit (25mcg) tablet PO SCH (08:16)
[2022-11-14] MEDS: heparin, porcine 5000 units/ml vial SQ SCH ×2 (08:18→20:00)
[2022-11-14] MEDS: HYDROcodone/acetaminophen 10/325mg tab PO PRN ×2 (08:27→21:38)
--- NOTE | 2022-11-14 08:32 | NUR ---
RN reported to RT that pt. has refused his morning Pulmocort
[2022-11-14 09:45] LABS: ALANINE AMINOTRANSFERASE 104 U/L (12-78); ALBUMIN 2.8 G/DL (3.4-5.0); ALBUMIN/GLOBULIN RATIO 0.9 (1.1-1.5); ALKALINE PHOSPHATASE 91 IU/L (46-116); ANION GAP 3 (8-16); ASPARTATE AMINO TRANSFERASE 22 U/L (10-37); BILIRUBIN,TOTAL 1.2 MG/DL (0.1-1.0); BLOOD UREA NITROGEN 12 MG/DL (7-18); BUN/CREATININE RATIO 14.6 (10.0-20.0); CALCIUM 8.2 MG/DL (8.5-10.1); CHLORIDE 109 MMOL/L (99-107); CREATININE 0.82 MG/DL (0.60-1.10); GLUCOSE 122 MG/DL (70-104); PHOSPHORUS 2.7 MG/DL (2.3-4.5); POTASSIUM 3.5 MMOL/L (3.5-5.1); SODIUM 139 MMOL/L (135-145); TOTAL CARBON DIOXIDE 26.8 MMOL/L (24-32); TOTAL PROTEIN 5.8 G/DL (6.4-8.2); VANCOMYCIN,TROUGH 11.2 UG/ML (6.0-14.0); eGFR > 90 ML/MIN
[2022-11-14 10:10] LABS: HIV ANTIBODY 1&2 RAPID NON-REACTIVE (Neg)
[2022-11-14] MEDS: normal saline 1000ml 1,000 ML IV SCH ×2 (10:20→13:55)
[2022-11-14 11:32] LABS: HEMATOCRIT 40.9 % (42.0-52.0); MEAN CORPUSCULAR HEMOGLOBIN 30.5 PG (27.0-31.0); MEAN CORPUSCULAR HGB CONC 34.3 g/dL (33.0-36.5); MEAN PLATELET VOLUME 8.3 FL (7.4-10.4); PLATELET COUNT 150 X10'3 (140-440); RED CELL DISTRIBUTION WIDTH 12.8 % (11.5-14.5); WHITE BLOOD COUNT 9.6 X10'3 (4.5-11.0)
[2022-11-14] MEDS ORDERED: GADOTERATE MEGLUMINE 7.5 MMOL/15 ML VIAL IV ONE (12:01)
[2022-11-14 12:13] LABS: PLATELET ESTIMATE NORMAL; TOTAL CELLS COUNTED 100
[2022-11-14] MEDS: ondansetron/PF 4mg/2ml inj IV PRN (12:28)
--- NOTE | 2022-11-14 15:23 | NUR ---
PAGED DR CUEVAS RE: Message: LUIS ARMANDO SCHWARTZ. EKG FROM THIS AM DID SHOW SLIGHT ST ELEVATION. WANTED YOU TO BE AWARE. LADONNA [phone] TELE
[2022-11-14] MEDS ORDERED: VANCOmycin 1250MG/NS 250ml Bag 250 ML IV SCH (16:00)
[2022-11-14 16:04] VITALS: BP 102/51
--- NOTE | 2022-11-14 18:34 | NUR ---
Problems reprioritized. Patient report given, questions answered & plan of care reviewed with JUANJO BECERRA.
[2022-11-14 22:00] VITALS: BP 121/64
[2022-11-15 02:00] VITALS: BP 127/59
[2022-11-15] MEDS: normal saline 1000ml 1,000 ML IV SCH ×3 (02:37→16:30)
--- NOTE | 2022-11-15 06:45 | NUR ---
Patient in room PCU 3022. I have received report from HERNAN GEIGER and had the opportunity to ask questions and assume patient care.
[2022-11-15 06:56] LABS: BASOPHILS % (AUTO) 0.5 % (0-1); EOSINOPHILS # (AUTO) 0.2 X10'3 (0-0.9); HEMATOCRIT 44.8 % (42.0-52.0); HEMOGLOBIN 15.7 g/dl (14.0-17.9); LYMPHOCYTES # (AUTO) 1.7 X10'3 (1.1-4.8); LYMPHOCYTES % (AUTO) 19.5 % (21-51); MEAN CORPUSCULAR HEMOGLOBIN 30.7 PG (27.0-31.0); MEAN CORPUSCULAR VOLUME 87.7 FL (78-98); MEAN PLATELET VOLUME 7.2 FL (7.4-10.4); MONOCYTES # (AUTO) 0.6 X10'3 (0-0.9); NEUTROPHILS # (AUTO) 6.3 X10'3 (1.8-7.7); PLATELET COUNT 199 X10'3 (140-440); RED BLOOD COUNT 5.11 X10'6 (4.70-6.10); RED CELL DISTRIBUTION WIDTH 12.8 % (11.5-14.5); WHITE BLOOD COUNT 8.8 X10'3 (4.5-11.0)
[2022-11-15 07:25] LABS: ALANINE AMINOTRANSFERASE 88 U/L (12-78); ALBUMIN/GLOBULIN RATIO 0.9 (1.1-1.5); ALKALINE PHOSPHATASE 91 IU/L (46-116); ANION GAP 10 (8-16); ASPARTATE AMINO TRANSFERASE 24 U/L (10-37); BILIRUBIN,TOTAL 1.3 MG/DL (0.1-1.0); BLOOD UREA NITROGEN 8 MG/DL (7-18); BUN/CREATININE RATIO 12.3 (10.0-20.0); CHLORIDE 105 MMOL/L (99-107); CREATININE 0.65 MG/DL (0.60-1.10); GLUCOSE 97 MG/DL (70-104); PHOSPHORUS 3.7 MG/DL (2.3-4.5); POTASSIUM 3.6 MMOL/L (3.5-5.1); SODIUM 141 MMOL/L (135-145); TOTAL CARBON DIOXIDE 25.8 MMOL/L (24-32); TOTAL PROTEIN 6.3 G/DL (6.4-8.2); eGFR > 90 ML/MIN
[2022-11-15] MEDS: atorvastatin 20mg tablet PO SCH (07:25)
[2022-11-15] MEDS: cholecalciferol (vitamin D3) 1,000 unit (25mcg) tablet PO SCH (07:25)
[2022-11-15] MEDS: heparin, porcine 5000 units/ml vial SQ SCH ×2 (07:25→19:56)
[2022-11-15] MEDS: ondansetron/PF 4mg/2ml inj IV PRN (07:25)
[2022-11-15] MEDS: HYDROcodone/acetaminophen 10/325mg tab PO PRN ×2 (07:26→19:58)
[2022-11-15] MEDS: docusate sod 100mg capsule PO SCH ×2 (07:32→20:00)
[2022-11-15] MEDS: budesonide 0.5mg/2ml UD nebule IH SCH ×2 (08:00→20:00)
[2022-11-15] MEDS: K and/or MAG REPLACEMENT MC SCH ×2 (08:00→20:00)
[2022-11-15] MEDS: CefTRIAXone 2gm/D5W 50ml BAG 50 ML IV SCH (08:23)
[2022-11-15 10:00] VITALS: BP 134/76
[2022-11-15 15:00] VITALS: BP 128/72
[2022-11-15] MEDS ORDERED: VANCOMYCIN LEVEL IV ONE (15:30)
[2022-11-15] MEDS: aspirin/acetaminophen/caffeine tablet PO PRN (16:22)
[2022-11-15 18:00] VITALS: BP 117/62
--- NOTE | 2022-11-15 18:45 | NUR ---
Problems reprioritized. Patient report given, questions answered & plan of care reviewed with HERNAN ISAACS.
[2022-11-15 22:00] VITALS: BP 125/73
[2022-11-16] MEDS: normal saline 1000ml 1,000 ML IV SCH ×2 (00:52→08:58)
--- NOTE | 2022-11-16 02:24 | NUR ---
Pt instructed his nurse not to wake him up for vitals cos he do not want to be disturbed while asleep,hence pts 0200 was not done as pt is sleeping at this time
[2022-11-16] MEDS: aspirin/acetaminophen/caffeine tablet PO PRN (04:54)
--- NOTE | 2022-11-16 06:18 | NUR ---
Problems reprioritized. Patient report given, questions answered & plan of care reviewed with Karol BECERRA.
[2022-11-16 06:30] VITALS: BP 111/58
[2022-11-16] MEDS: atorvastatin 20mg tablet PO SCH (07:19)
[2022-11-16] MEDS: cholecalciferol (vitamin D3) 1,000 unit (25mcg) tablet PO SCH (07:19)
[2022-11-16] MEDS: CefTRIAXone 2gm/D5W 50ml BAG 50 ML IV SCH (07:20)
[2022-11-16] MEDS: heparin, porcine 5000 units/ml vial SQ SCH (07:20)
[2022-11-16] MEDS: docusate sod 100mg capsule PO SCH (07:21)
[2022-11-16 07:35] LABS: ALANINE AMINOTRANSFERASE 109 U/L (12-78); ALBUMIN/GLOBULIN RATIO 0.9 (1.1-1.5); ALKALINE PHOSPHATASE 93 IU/L (46-116); ANION GAP 10 (8-16); ASPARTATE AMINO TRANSFERASE 53 U/L (10-37); BILIRUBIN,TOTAL 1.1 MG/DL (0.1-1.0); BLOOD UREA NITROGEN 11 MG/DL (7-18); BUN/CREATININE RATIO 16.4 (10.0-20.0); CALCIUM 8.8 MG/DL (8.5-10.1); CHLORIDE 106 MMOL/L (99-107); CREATININE 0.67 MG/DL (0.60-1.10); GLUCOSE 107 MG/DL (70-104); MAGNESIUM 1.9 MG/DL (1.5-2.4); PHOSPHORUS 3.6 MG/DL (2.3-4.5); POTASSIUM 3.8 MMOL/L (3.5-5.1); SODIUM 140 MMOL/L (135-145); TOTAL CARBON DIOXIDE 23.7 MMOL/L (24-32); TOTAL PROTEIN 6.3 G/DL (6.4-8.2); eGFR > 90 ML/MIN
[2022-11-16 07:54] LABS: BASOPHILS # (AUTO) 0.1 X10'3 (0-0.2); BASOPHILS % (AUTO) 0.8 % (0-1); EOSINOPHILS # (AUTO) 0.2 X10'3 (0-0.9); EOSINOPHILS % (AUTO) 1.8 % (0-6); HEMATOCRIT 47.4 % (42.0-52.0); HEMOGLOBIN 16.3 g/dl (14.0-17.9); LYMPHOCYTES # (AUTO) 1.7 X10'3 (1.1-4.8); LYMPHOCYTES % (AUTO) 17.7 % (21-51); MEAN CORPUSCULAR HEMOGLOBIN 30.3 PG (27.0-31.0); MEAN CORPUSCULAR HGB CONC 34.3 g/dL (33.0-36.5); MEAN CORPUSCULAR VOLUME 88.2 FL (78-98); MEAN PLATELET VOLUME 7.3 FL (7.4-10.4); MONOCYTES # (AUTO) 0.5 X10'3 (0-0.9); MONOCYTES % (AUTO) 5.8 % (2-12); NEUTROPHILS % (AUTO) 73.9 % (42-75); PLATELET COUNT 219 X10'3 (140-440); RED BLOOD COUNT 5.37 X10'6 (4.70-6.10); RED CELL DISTRIBUTION WIDTH 12.5 % (11.5-14.5); WHITE BLOOD COUNT 9.5 X10'3 (4.5-11.0)
[2022-11-16] MEDS: budesonide 0.5mg/2ml UD nebule IH SCH (08:00)
[2022-11-16] MEDS: K and/or MAG REPLACEMENT MC SCH (08:00)
[2022-11-16] MEDS: HYDROcodone/acetaminophen 10/325mg tab PO PRN ×2 (08:57→13:58)
[2022-11-16 10:30] VITALS: BP 98/58
[2022-11-16] MEDS ORDERED: ASPI1TAB59 PO (12:56)
[2022-11-16 14:02] VITALS: BP 120/74
--- NOTE | 2022-11-16 15:12 | NUR ---
Pt stable for d/c per MD orders Rev'd d/c ppwk with patient while he was sitting at the edge of the bed: patient verbalized understanding and all questions, comments, and concerns were answered at this time. PIV was removed; pt tolerated well. Tele #[id number] was removed and returned to telesales consultant monitor. I was in the middle of helping the patient to get dressed when he said he needed a break. Advised I will be back to assist him in a few minutes. He agreed and laid back down in the bed.
--- NOTE | 2022-11-16 15:43 | NUR ---
I was able to assist the patient to get ready for d/c. Pt was able to transfer himself to the w/c and was wheeled out by myself and another nursing staff. We took him to his car that was parked in the ED parking lot and he was able to get in and close the door. All personal belongings were sent with patient and new RX was electronically sent to [facility].
[2022-11-17 09:20] LABS: HBSAG SCREEN Negative (Negative); HEP A AB, IGM Negative (Negative); HEPATITIS C VIRUS ANTIBODY Non Reactive (Non Reactive)
[2022-11-17 16:17] LABS: LYME IGG P23 AB Absent (.); LYME IGG P28 AB Absent (.); LYME IGG P30 AB Absent (.); LYME IGG P41 AB Absent (.); LYME IGG P45 AB Absent (.); LYME IGG P58 AB Absent (.); LYME IGG P66 AB Absent (.); LYME IGG P93 AB Absent (.); LYME IGG WB INTERP Negative (.); LYME IGM P23 AB Absent (.); LYME IGM P39 AB Absent (.); LYME IGM P41 AB Absent (.); LYME IGM WB INTERP Negative (.)
== END 2022-11-16 15:30 | disposition home or self-care (01) | DRG 720 ==
LOC: ER 14:01 → ED HOLD 18:24 → PCU 3S 21:30
PROVIDERS: ADMIT Family Medicine; ATTEND Family Medicine
PROC: 009U3ZX Drainage of Spinal Canal, Percutaneous Approach, Diagnostic (ICD-10-PCS; principal; 2022-11-12)
DX: A41.9 Sepsis, unspecified organism (principal); J18.9 Pneumonia, unspecified organism; R29.1 Meningismus; E87.1 Hypo-osmolality and hyponatremia; J44.0 Chronic obstructive pulmonary disease with (acute) lower respiratory infection; Z20.822 Contact with and (suspected) exposure to COVID-19; R74.01 Elevation of levels of liver transaminase levels; J40 Bronchitis, not specified as acute or chronic; E11.9 Type 2 diabetes mellitus without complications; J32.9 Chronic sinusitis, unspecified; E03.9 Hypothyroidism, unspecified; E78.5 Hyperlipidemia, unspecified; G89.4 Chronic pain syndrome; I10 Essential (primary) hypertension; R29.810 Facial weakness; M54.9 Dorsalgia, unspecified; Z88.8 Allergy status to other drugs, medicaments and biological substances; Z88.5 Allergy status to narcotic agent
CPT/HCPCS: 36415; 70450; 70553; 71045; 72156; 72157; 72158; 76700; 80053; 80061; 80074; 80202; 80305; 81003; 82945; 82948; 83605; 83735; 84100; 84145; 84157; 84484; 85007; 85025; 86617; 86703; 86788; 86789; 87015; 87040; 87070; 87081; 87502; 87503; 87811; 89051; 94640; 94760; 96365; 97116; 97161; 97530; 99285; A9575; G0378; J0133; J0456; J0696; J1644; J2270; J2405; J2930; J3370; J7030; J7050

== ENCOUNTER 2022-12-23 00:05 | Emergency (ER) | payer MEDICAID ==
[~2022-12-23] VITALS: Ht 185.4 cm; Wt 89.0 kg
[~2022-12-23 00:05] MED LIST changes: -AMA100C PO; +ASPI1TAB59 PO; -LEVO-65 PO; -PRED20TA PO
[2022-12-23] MEDS ORDERED: albuterol 2.5 MG/3 ML nebule NEB ONE (00:25)
[2022-12-23] MEDS ORDERED: normal saline 1000ML IV soln IVB ONE (00:35)
[2022-12-23] MEDS ORDERED: doxycycline inj 200 MG in normal saline 250ml IV soln 250 ML IV ONE (00:35)
[2022-12-23] MEDS ORDERED: methylPREDNISolone sod succ 125mg/2ml vial IV ONE (00:35)
[2022-12-23 00:48] LABS: BASOPHILS # (AUTO) 0.1 X10'3 (0-0.2); BASOPHILS % (AUTO) 1.3 % (0-1); EOSINOPHILS # (AUTO) 0.6 X10'3 (0-0.9); EOSINOPHILS % (AUTO) 6.6 % (0-6); HEMATOCRIT 48.2 % (42.0-52.0); HEMOGLOBIN 16.7 g/dl (14.0-17.9); LYMPHOCYTES # (AUTO) 2.8 X10'3 (1.1-4.8); LYMPHOCYTES % (AUTO) 33.1 % (21-51); MEAN CORPUSCULAR HEMOGLOBIN 29.9 PG (27.0-31.0); MEAN CORPUSCULAR HGB CONC 34.7 g/dL (33.0-36.5); MEAN CORPUSCULAR VOLUME 86.3 FL (78-98); MEAN PLATELET VOLUME 7.1 FL (7.4-10.4); MONOCYTES # (AUTO) 0.7 X10'3 (0-0.9); MONOCYTES % (AUTO) 7.8 % (2-12); NEUTROPHILS # (AUTO) 4.3 X10'3 (1.8-7.7); NEUTROPHILS % (AUTO) 51.2 % (42-75); PLATELET COUNT 210 X10'3 (140-440); RED BLOOD COUNT 5.59 X10'6 (4.70-6.10); RED CELL DISTRIBUTION WIDTH 13.3 % (11.5-14.5); WHITE BLOOD COUNT 8.4 X10'3 (4.5-11.0)
[2022-12-23 01:01] LABS: ALANINE AMINOTRANSFERASE 42 U/L (12-78); ALBUMIN 4.1 G/DL (3.4-5.0); ALBUMIN/GLOBULIN RATIO 1.4 (1.1-1.5); ALKALINE PHOSPHATASE 124 IU/L (46-116); ANION GAP 11 (8-16); ASPARTATE AMINO TRANSFERASE 26 U/L (10-37); BILIRUBIN,TOTAL 1.1 MG/DL (0.1-1.0); BLOOD UREA NITROGEN 15 MG/DL (7-18); BUN/CREATININE RATIO 17.6 (10.0-20.0); CALCIUM 9.1 MG/DL (8.5-10.1); CHLORIDE 104 MMOL/L (99-107); CREATININE 0.85 MG/DL (0.60-1.10); GLUCOSE 119 MG/DL (70-104); POTASSIUM 3.5 MMOL/L (3.5-5.1); SODIUM 138 MMOL/L (135-145); TOTAL CARBON DIOXIDE 23.1 MMOL/L (24-32); eGFR > 90 ML/MIN
[2022-12-23] MEDS ORDERED: PRED20TA PO (02:29)
[2022-12-23] MEDS ORDERED: AZIT-164 PO (02:29)
[2022-12-23 02:33] LABS: ACETAMINOPHEN < 2.0 UG/ML (10-30)
[2022-12-23 02:47] VITALS: BP 130/78
== END 2022-12-23 02:49 | disposition home or self-care (01) ==
LOC: ER 00:06
DX: J45.901 Unspecified asthma with (acute) exacerbation (principal); I10 Essential (primary) hypertension; J45.909 Unspecified asthma, uncomplicated; Z88.8 Allergy status to other drugs, medicaments and biological substances; Z88.5 Allergy status to narcotic agent; Z88.6 Allergy status to analgesic agent; Z79.899 Other long term (current) drug therapy
CPT/HCPCS: 36415; 71045; 80053; 80329; 85025; 94640; 96365; 96375; 99284; J2930; J3490; J7030; J7050; 94760

== ENCOUNTER 2023-01-06 20:06 | Emergency (ER) | payer MEDICAID ==
[~2023-01-06] VITALS: Ht 185.4 cm; Wt 94.5 kg
[~2023-01-06 20:06] MED LIST changes: +AZIT-164 PO; +PRED20TA PO
[2023-01-06 20:10] VITALS: BP 124/72
== END 2023-01-07 00:57 | disposition left against medical advice (07) ==
LOC: ER 20:07
DX: R06.02 Shortness of breath (principal); Z53.21 Procedure and treatment not carried out due to patient leaving prior to being seen by health care provider
CPT/HCPCS: 99281

== ENCOUNTER 2023-01-16 06:43 | Emergency (ER) | payer MEDICAID ==
[~2023-01-16] VITALS: Ht 185.4 cm; Wt 99.0 kg
[~2023-01-16 06:43] MED LIST changes: -AZIT-164 PO
[2023-01-16] MEDS ORDERED: acetaminophen 325mg tablet PO ONE (07:00)
[2023-01-16] MEDS ORDERED: ibuprofen tablet 400 MG TABLET PO ONE (07:00)
[2023-01-16] MEDS ORDERED: ipratropium/albuterol 3ml nebule NEB ONE (07:00)
[2023-01-16] MEDS ORDERED: predniSONE 20 mg tablet PO ONE (07:15)
[2023-01-16 09:28] VITALS: BP 122/79
[2023-01-16] MEDS ORDERED: PRED10TA23 PO (09:38)
[2023-01-16] MEDS ORDERED: ALBU6.7H14 INH ×2 (09:38)
[2023-01-16] MEDS ORDERED: FLUT12AE9 INH ×2 (09:38)
== END 2023-01-16 09:51 | disposition home or self-care (01) ==
LOC: ER 06:44
DX: J45.901 Unspecified asthma with (acute) exacerbation (principal); I10 Essential (primary) hypertension; J45.909 Unspecified asthma, uncomplicated; G89.29 Other chronic pain; Z72.89 Other problems related to lifestyle; Z79.899 Other long term (current) drug therapy; Z88.8 Allergy status to other drugs, medicaments and biological substances; Z79.82 Long term (current) use of aspirin
CPT/HCPCS: 71045; 93005; 94640; 99284; J7512; 94760

== ENCOUNTER 2023-01-21 22:35 | Inpatient (IN) | payer MEDICAID ==
[~2023-01-21] VITALS: Ht 177.8 cm; Wt 75.0 kg
[~2023-01-21 22:35] MED LIST changes: +ALBU6.7H14 INH; +FLUT12AE9 INH; +PRED10TA23 PO
[2023-01-21] MEDS ORDERED: ipratropium/albuterol 3ml nebule NEB ONE (22:45)
[2023-01-21] MEDS ORDERED: magnesium 2GM in 50ml NS 50 ML IV ONE (22:50)
[2023-01-21] MEDS ORDERED: methylPREDNISolone sod succ 125mg/2ml vial IV ONE (22:50)
[2023-01-21] MEDS ORDERED: normal saline 1000ML IV soln IVB ONE (22:50)
--- NOTE | 2023-01-21 23:44 | NUR ---
pt is resting quietly on gurney, said he feels "a little better", expiratory wheezes, no resp distress, talking 5--[address] Akins aware
[2023-01-21] MEDS ORDERED: albuterol 2.5 MG/3 ML nebule NEB ONE (23:55)
[2023-01-22 01:14] LABS: BASOPHILS % (AUTO) 0.8 % (0-1); EOSINOPHILS # (AUTO) 0.1 X10'3 (0-0.9); EOSINOPHILS % (AUTO) 2.4 % (0-6); HEMATOCRIT 30.8 % (42.0-52.0); HEMOGLOBIN 10.4 g/dl (14.0-17.9); LYMPHOCYTES # (AUTO) 0.8 X10'3 (1.1-4.8); LYMPHOCYTES % (AUTO) 13.7 % (21-51); MEAN CORPUSCULAR HEMOGLOBIN 30.5 PG (27.0-31.0); MEAN CORPUSCULAR HGB CONC 33.8 g/dL (33.0-36.5); MEAN CORPUSCULAR VOLUME 90.1 FL (78-98); MEAN PLATELET VOLUME 7.1 FL (7.4-10.4); MONOCYTES # (AUTO) 0.2 X10'3 (0-0.9); MONOCYTES % (AUTO) 3.3 % (2-12); NEUTROPHILS # (AUTO) 4.7 X10'3 (1.8-7.7); NEUTROPHILS % (AUTO) 79.8 % (42-75); PLATELET COUNT 128 X10'3 (140-440); RED BLOOD COUNT 3.42 X10'6 (4.70-6.10); RED CELL DISTRIBUTION WIDTH 13.2 % (11.5-14.5); WHITE BLOOD COUNT 5.8 X10'3 (4.5-11.0)
[2023-01-22] MEDS ORDERED: albuterol 2.5 MG/3 ML nebule CONTNEB PRN (01:15)
[2023-01-22 01:29] LABS: ALBUMIN 1.7 G/DL (3.4-5.0); BILIRUBIN,TOTAL 0.5 MG/DL (0.1-1.0); BLOOD UREA NITROGEN 9 MG/DL (7-18); CHLORIDE 123 MMOL/L (99-107); MAGNESIUM 1.2 MG/DL (1.5-2.4); eGFR > 90 ML/MIN
--- NOTE | 2023-01-22 01:41 | NUR ---
Dr. Akins made aware of the blood results. They were drawn via straight stick per easter bunny.
[2023-01-22] MEDS ORDERED: potassium CL 10mEq/100ml bag 100 ML IV ONE (01:45)
[2023-01-22] MEDS ORDERED: potassium Cl 20 mEq SR tablet PO ONE (01:45)
[2023-01-22] MEDS ORDERED: magnesium 2GM in 50ml NS 50 ML IV ONE ×2 (01:45→03:15)
[2023-01-22] MEDS ORDERED: magnesium oxide 400mg tablet PO ONE (01:45)
[2023-01-22] MEDS ORDERED: CALCIUM GLUC 1gm/50ml NACL,iso 50 ML IV ONE (01:50)
--- NOTE | 2023-01-22 01:56 | NUR ---
ASSUMED CARE FROM HERNAN PETTIT.
[2023-01-22] MEDS ORDERED: potassium Cl 40MEQ/1/2NS 520ml 520 ML IV PRN ×2 (02:00→03:40)
[2023-01-22] MEDS: calcium carbonate 500mg tablet PO SCH (02:08)
[2023-01-22 02:13] LABS: ALANINE AMINOTRANSFERASE 18 U/L (12-78); ALBUMIN/GLOBULIN RATIO 1.2 (1.1-1.5); ALKALINE PHOSPHATASE 62 IU/L (46-116); ANION GAP 12 (8-16); ASPARTATE AMINO TRANSFERASE 13 U/L (10-37); BUN/CREATININE RATIO 24.3 (10.0-20.0); CREATININE 0.37 MG/DL (0.60-1.10); GLUCOSE 92 MG/DL (70-104); SODIUM 149 MMOL/L (135-145); TOTAL PROTEIN 3.1 G/DL (6.4-8.2)
[2023-01-22 02:16] LABS: ABG BASE EXCESS -2.2 mmol/L (-2.0-2.0); ABG HCO3 21.2 mmol/L (22.0-26.0); ABG OXYGEN SATURATION 91.9 % (94-97); ABG PCO2 (T) 33.1 mmHg (35.0-48.0); ABG PO2 (T) 61.7 mmHg (75.0-100.0); ALLEN'S TEST Modified; FCOHb 0.2 % (0.0-3.9); FMetHb 0.4 % (0.0-1.5); FO2Hb 91.3 % (94-97); PATIENT TEMPERATURE 36.9; TOTAL HEMOGLOBIN 17.1 G/dl (14.0-17.9)
[2023-01-22 02:16] LABS: POTASSIUM 1.8 MMOL/L (3.5-5.1); TOTAL CARBON DIOXIDE 14.1 MMOL/L (24-32)
[2023-01-22 02:18] LABS: CALCIUM < 5.0 MG/DL (8.5-10.1); ETHANOL < 0.010 GM/DL (0.0-0.010)
[2023-01-22 02:28] LABS: PHOSPHORUS 1.2 MG/DL (2.3-4.5)
[2023-01-22] MEDS ORDERED: FLUT12AE22 PO (02:31)
[2023-01-22] MEDS ORDERED: ALBU90AE2 INH (02:32)
--- NOTE | 2023-01-22 03:05 | NUR ---
TELE CHAINSTITCH HEMMER ROBOT AT BEDSIDE WITH DR MATIAS
--- NOTE | 2023-01-22 03:14 | NUR ---
RECIEVED VERBAL ORDERS OVER TELE ROBOT FROM DR CROSS
[2023-01-22] MEDS ORDERED: Potassium Cl inj 40 MEQ in sodium chloride 0.45% 500ml 500 ML IV ONE (03:15)
[2023-01-22] MEDS ORDERED: methylPREDNISolone sod succ 125mg/2ml vial IV ONE (03:15)
[2023-01-22] MEDS ORDERED: ipratropium/albuterol 3ml nebule NEB PRN (03:15)
[2023-01-22] MEDS: ipratropium/albuterol 3ml nebule NEB SCH ×4 (03:15→20:08)
[2023-01-22 03:23] LABS: ALANINE AMINOTRANSFERASE 35 U/L (12-78); ALBUMIN 3.9 G/DL (3.4-5.0); ALBUMIN/GLOBULIN RATIO 1.3 (1.1-1.5); ALKALINE PHOSPHATASE 128 IU/L (46-116); ANION GAP 12 (8-16); ASPARTATE AMINO TRANSFERASE 22 U/L (10-37); BILIRUBIN,TOTAL 0.9 MG/DL (0.1-1.0); BLOOD UREA NITROGEN 15 MG/DL (7-18); BUN/CREATININE RATIO 15.8 (10.0-20.0); CHLORIDE 105 MMOL/L (99-107); CREATININE 0.95 MG/DL (0.60-1.10); GLUCOSE 209 MG/DL (70-104); SODIUM 139 MMOL/L (135-145); TOTAL CARBON DIOXIDE 22.2 MMOL/L (24-32); TOTAL PROTEIN 6.8 G/DL (6.4-8.2); eGFR 90 ML/MIN
[2023-01-22] MEDS ORDERED: DEXTROSE 15 GM of carb/4 tabs (each vial/BOTTLE has 4 tablets) PO PRN ×2 (03:30)
[2023-01-22] MEDS ORDERED: magnesium 4gm in 100ml NS 100 ML IV PRN ×2 (03:30→03:40)
[2023-01-22] MEDS ORDERED: glucagon, human recombinant 1mg kit SUBCUT PRN (03:30)
[2023-01-22] MEDS ORDERED: MESSAGE TO PHARMACY PO ONE (03:30)
[2023-01-22] MEDS ORDERED: potassium Cl 20 mEq SR tablet PO PRN ×3 (03:30→03:40)
[2023-01-22] MEDS ORDERED: magnesium 2GM in 50ml NS 50 ML IV PRN (03:30)
[2023-01-22] MEDS ORDERED: insulin Lispro (HumaLOG) vial - multi-dose SQ SCH (03:30)
[2023-01-22] MEDS ORDERED: acetaminophen 325mg tablet PO PRN (03:40)
[2023-01-22] MEDS ORDERED: mag hydrox/Alum hydrox/simeth 30ml oral suspension PO PRN (03:40)
[2023-01-22] MEDS ORDERED: ondansetron/PF 4mg/2ml inj IV PRN (03:40)
[2023-01-22] MEDS ORDERED: magnesium hydroxide 30ml (MOM) UD suspension PO PRN (03:40)
[2023-01-22] MEDS ORDERED: potassium Cl 40MEQ/1/2NS 520ml 520 ML IV ONE (03:42)
[2023-01-22] MEDS ORDERED: albuterol 2.5 MG/3 ML nebule NEB ONE (03:45)
--- NOTE | 2023-01-22 03:48 | NUR ---
DR MATIAS AND DR SMITH NOTIFIED UP UPDATED CMP AND IMPROVED LABS. DR SMITH TO UPDATE DR CROSS.
--- NOTE | 2023-01-22 04:00 | NUR ---
PER DR SMITH, DO NOT GIVE 3RD BAG OF 2GRAM MAG. DID NOT ADMINISTER.
[2023-01-22 04:01] LABS: PHOSPHORUS 2.4 MG/DL (2.3-4.5)
[2023-01-22] MEDS: ringers solution, lacted 1,000 ML IV SCH ×3 (04:04→23:15)
[2023-01-22 04:27] LABS: CLARITY,URINE CLEAR (Clear); COLOR,URINE YELLOW (Yellow); GLUCOSE, URINE NEGATIVE (Neg); KETONES,URINE NEGATIVE (Neg); LEUKOCYTE ESTERASE ,URINE NEGATIVE (Neg); NITRITES, URINE NEGATIVE (Neg); OCCULT BLOOD,URINE NEGATIVE (Neg); PROTEIN,URINE NEGATIVE (Neg); UROBILINOGEN,URINE 0.2 E.U/dL (0.2-1.0)
[2023-01-22 04:30] LABS: UA COLLECTION TYPE URINAL
[2023-01-22 05:00] LABS: URINE AMPHETAMINE SCREEN NEGATIVE (Neg); URINE BARBITUATE SCREEN NEGATIVE (Neg); URINE BENZODIAZEPINES SCREEN NEGATIVE (Neg); URINE CANNABINOID SCREEN NEGATIVE (Neg); URINE COCAINE SCREEN NEGATIVE (Neg); URINE METHADONE SCREEN NEGATIVE (Neg); URINE OPIATE SCREEN NEGATIVE (Neg); URINE PHENCYCLIDINE SCREEN NEGATIVE (Neg)
--- NOTE | 2023-01-22 05:56 | NUR ---
PT C/O PAIN WITH POTASSIUM INFUSION. PER DR SMITH, GIVE NS ALONG WITH POTASSIUM TO DECREASE PAIN AT SAME RATE.
[2023-01-22 07:32] VITALS: BP 123/75
[2023-01-22] MEDS: K and/or MAG REPLACEMENT MC SCH ×2 (08:00→19:36)
[2023-01-22] MEDS ORDERED: K and/or MAG REPLACEMENT MC SCH (08:00)
[2023-01-22] MEDS ORDERED: enoxaparin 100mg/ml syringe SUBCUT ONE (08:00)
[2023-01-22] MEDS: pantoprazole 40MG/NS 100ML BAG 100 ML IV SCH (08:00)
[2023-01-22] MEDS: docusate sod 100mg capsule PO SCH ×2 (08:00→19:46)
[2023-01-22 08:21] LABS: ALANINE AMINOTRANSFERASE 35 U/L (12-78); ALBUMIN 3.7 G/DL (3.4-5.0); ALBUMIN/GLOBULIN RATIO 1.2 (1.1-1.5); ALKALINE PHOSPHATASE 121 IU/L (46-116); ANION GAP 12 (8-16); ASPARTATE AMINO TRANSFERASE 26 U/L (10-37); BILIRUBIN,TOTAL 0.9 MG/DL (0.1-1.0); BLOOD UREA NITROGEN 13 MG/DL (7-18); BUN/CREATININE RATIO 13.4 (10.0-20.0); CHLORIDE 105 MMOL/L (99-107); CREATININE 0.97 MG/DL (0.60-1.10); GLUCOSE 176 MG/DL (70-104); POTASSIUM 4.5 MMOL/L (3.5-5.1); SODIUM 138 MMOL/L (135-145); TOTAL CARBON DIOXIDE 20.6 MMOL/L (24-32); TOTAL PROTEIN 6.8 G/DL (6.4-8.2); eGFR 88 ML/MIN
[2023-01-22 11:00] VITALS: BP 134/78
[2023-01-22 12:14] LABS: HEMOGLOBIN A1C 5.5 % (4.5-6.2)
[2023-01-22 15:00] VITALS: BP 110/68
[2023-01-22] MEDS: CefTRIAXone/D5W-Rocephin 1gm 50 ML IV SCH (15:30)
[2023-01-22] MEDS: azithromycin 250mg tablet PO SCH (15:39)
[2023-01-22] MEDS: prednisone 10mg tablet PO SCH (15:39)
[2023-01-22] MEDS: atorvastatin 20mg tablet PO SCH (15:46)
[2023-01-22 18:00] VITALS: BP 131/112
--- NOTE | 2023-01-22 18:23 | NUR ---
Patient in room PCU 3025. I have received report from JORY BECERRA and had the opportunity to ask questions and assume patient care.
[2023-01-22] MEDS ORDERED: enoxaparin 40mg/0.4ml syringe SQ SCH (20:00)
[2023-01-22] MEDS ORDERED: insulin glargine (Lantus) pen - multi-dose SQ SCH (21:00)
[2023-01-22 22:00] VITALS: BP 114/59
[2023-01-23] MEDS: calcium carbonate 500mg tablet PO SCH (01:50)
[2023-01-23] MEDS: ipratropium/albuterol 3ml nebule NEB SCH ×3 (03:07→14:00)
--- NOTE | 2023-01-23 06:30 | NUR ---
Patient in room PCU 3025. I have received report from Chely BECERRA and had the opportunity to ask questions and assume patient care.
--- NOTE | 2023-01-23 06:30 | NUR ---
Problems reprioritized. Patient report given, questions answered & plan of care reviewed with LYNN RN /LILIA RN.
--- NOTE | 2023-01-23 06:30 | NUR ---
Patient in room PCU 3025. I have received report from Chely BECERRA and had the opportunity to ask questions and assume patient care.
--- NOTE | 2023-01-23 06:40 | NUR ---
Patient in room PCU 3025. I have received report from MAXINE BECERRA and had the opportunity to ask questions and assume patient care.
--- NOTE | 2023-01-23 07:11 | NUR ---
Patient refused to have vitals taken at this time.
--- NOTE | 2023-01-23 07:22 | NUR ---
Problems reprioritized. Patient report given TIANA BECERRA, questions answered & plan of care reviewed with .
--- NOTE | 2023-01-23 07:25 | NUR ---
Patient in room PCU 3025. I have received report from Travis BECERRA and had the opportunity to ask questions and assume patient care. Lab at bedside. Pt refusing V/S this a.m. Addendum: 01/23/23 at 0734 by Vivien Walsh RN Amended: Links added.
[2023-01-23 07:58] LABS: BASOPHILS # (AUTO) 0.1 X10'3 (0-0.2); BASOPHILS % (AUTO) 0.4 % (0-1); EOSINOPHILS # (AUTO) 0.1 X10'3 (0-0.9); EOSINOPHILS % (AUTO) 0.5 % (0-6); HEMATOCRIT 46.8 % (42.0-52.0); HEMOGLOBIN 16.1 g/dl (14.0-17.9); LYMPHOCYTES # (AUTO) 2.4 X10'3 (1.1-4.8); LYMPHOCYTES % (AUTO) 16.4 % (21-51); MEAN CORPUSCULAR HEMOGLOBIN 30.4 PG (27.0-31.0); MEAN CORPUSCULAR HGB CONC 34.5 g/dL (33.0-36.5); MEAN CORPUSCULAR VOLUME 88.1 FL (78-98); MEAN PLATELET VOLUME 7.5 FL (7.4-10.4); MONOCYTES # (AUTO) 0.9 X10'3 (0-0.9); MONOCYTES % (AUTO) 6.2 % (2-12); NEUTROPHILS # (AUTO) 11.2 X10'3 (1.8-7.7); NEUTROPHILS % (AUTO) 76.5 % (42-75); PLATELET COUNT 218 X10'3 (140-440); RED BLOOD COUNT 5.31 X10'6 (4.70-6.10); RED CELL DISTRIBUTION WIDTH 13.4 % (11.5-14.5); WHITE BLOOD COUNT 14.7 X10'3 (4.5-11.0)
[2023-01-23] MEDS: K and/or MAG REPLACEMENT MC SCH (08:00)
[2023-01-23] MEDS: docusate sod 100mg capsule PO SCH (08:00)
[2023-01-23 08:13] LABS: ALANINE AMINOTRANSFERASE 37 U/L (12-78); ALBUMIN 3.3 G/DL (3.4-5.0); ALBUMIN/GLOBULIN RATIO 1.1 (1.1-1.5); ALKALINE PHOSPHATASE 115 IU/L (46-116); ANION GAP 14 (8-16); BILIRUBIN,TOTAL 0.7 MG/DL (0.1-1.0); BLOOD UREA NITROGEN 24 MG/DL (7-18); BUN/CREATININE RATIO 28.2 (10.0-20.0); CALCIUM 8.1 MG/DL (8.5-10.1); CHLORIDE 105 MMOL/L (99-107); CREATININE 0.85 MG/DL (0.60-1.10); MAGNESIUM 2.1 MG/DL (1.5-2.4); SODIUM 140 MMOL/L (135-145); TOTAL CARBON DIOXIDE 20.6 MMOL/L (24-32); TOTAL PROTEIN 6.3 G/DL (6.4-8.2); eGFR > 90 ML/MIN
[2023-01-23 08:25] LABS: GLUCOSE 132 MG/DL (70-104)
[2023-01-23] MEDS: atorvastatin 20mg tablet PO SCH (08:45)
[2023-01-23] MEDS: prednisone 10mg tablet PO SCH (08:45)
[2023-01-23] MEDS: azithromycin 250mg tablet PO SCH (08:45)
[2023-01-23] MEDS: pantoprazole 40MG/NS 100ML BAG 100 ML IV SCH (08:48)
[2023-01-23] MEDS: CefTRIAXone/D5W-Rocephin 1gm 50 ML IV SCH (08:48)
[2023-01-23 09:05] LABS: ASPARTATE AMINO TRANSFERASE 13 U/L (10-37); POTASSIUM 3.9 MMOL/L (3.5-5.1)
[2023-01-23] MEDS: ringers solution, lacted 1,000 ML IV SCH (09:15)
--- NOTE | 2023-01-23 11:00 | NUR ---
pt refusing BP as cuff is too tight. He removed cuff and threw it at PCT.
[2023-01-23] MEDS ORDERED: CEFD300C3 PO (14:11)
[2023-01-23] MEDS ORDERED: PRED10TA PO (14:11)
[2023-01-23] MEDS ORDERED: LACT1CAP74 PO (14:11)
[2023-01-23] MEDS ORDERED: AZI25OT PO (14:11)
--- NOTE | 2023-01-23 15:00 | NUR ---
All written and verbal orders for D/C given, all questions answered. Pt left hospital under own power. Pt to home in the car he drove here in. Addendum: 01/23/23 at 1533 by Vivien Walsh RN Amended: Links added.
== END 2023-01-23 15:30 | disposition home or self-care (01) | DRG 141 ==
LOC: ER 22:36 → ED HOLD 01-22 03:44 → PCU 3S 01-22 07:18
PROVIDERS: ADMIT Family Medicine; ATTEND Family Medicine
DX: J45.902 Unspecified asthma with status asthmaticus (principal); E83.39 Other disorders of phosphorus metabolism; E87.20 Acidosis, unspecified; E11.9 Type 2 diabetes mellitus without complications; E78.5 Hyperlipidemia, unspecified; E83.42 Hypomagnesemia; E83.51 Hypocalcemia; E87.6 Hypokalemia; F43.10 Post-traumatic stress disorder, unspecified; I10 Essential (primary) hypertension; E87.1 Hypo-osmolality and hyponatremia; Z20.822 Contact with and (suspected) exposure to COVID-19; Z88.8 Allergy status to other drugs, medicaments and biological substances
CPT/HCPCS: 36415; 36600; 71045; 80053; 80305; 80320; 81003; 82803; 82948; 83036; 83605; 83735; 84100; 84443; 84484; 85018; 85025; 87040; 87502; 87503; 87811; 93005; 94640; 94760; 99285; A6449; A7015; C9113; G0378; J0610; J0696; J1650; J1815; J2930; J3475; J3480; J7030; J7120; J7512

== ENCOUNTER 2023-02-15 12:30 | Emergency (ER) | payer MEDICAID ==
[~2023-02-15] VITALS: Ht 185.4 cm; Wt 70.2 kg
[~2023-02-15 12:30] MED LIST changes: -ALBU17AE26 IH; -ALBU6.7H14 INH; +ALBU90AE2 INH; -ASPI1TAB59 PO; +AZI25OT PO; +CEFD300C3 PO; -CHOL20003 PO; +FLUT12AE22 PO; -FLUT12AE9 INH; +LACT1CAP74 PO; +PRED10TA PO; -PRED10TA23 PO; -PRED20TA PO
[2023-02-15 13:01] VITALS: BP 146/85; PULSE 104; RESP 18; TEMP 98.5; O2SAT 95
[2023-02-15] MEDS ORDERED: IBUP-1986 PO ×2 (14:20)
[2023-02-15] MEDS ORDERED: ketorolac trometh inj. 60 MG/2 ML VIAL IM ONE (14:20)
[2023-02-15] MEDS ORDERED: LIDOcaine 5% patch TP ONE (14:20)
[2023-02-15] MEDS ORDERED: LIDO700A32 TOP ×2 (14:20)
== END 2023-02-15 14:49 | disposition home or self-care (01) ==
LOC: ER 12:31
DX: M54.42 Lumbago with sciatica, left side (principal); I10 Essential (primary) hypertension; J45.909 Unspecified asthma, uncomplicated; G89.29 Other chronic pain; Z72.89 Other problems related to lifestyle; Z88.8 Allergy status to other drugs, medicaments and biological substances; Z79.899 Other long term (current) drug therapy; Z79.2 Long term (current) use of antibiotics; V86.95XA Unspecified occupant of 3- or 4- wheeled all-terrain vehicle (ATV) injured in nontraffic accident, initial encounter; Y93.89 Activity, other specified; Y92.89 Other specified places as the place of occurrence of the external cause; Y99.8 Other external cause status
CPT/HCPCS: 96372; 99283; J1885

== ENCOUNTER 2023-02-17 17:57 | Inpatient (IN) | payer MEDICAID ==
[2023-02-17] VITALS (8 sets, daily range): BP systolic 148–177; BP diastolic 88–104; PULSE 93–123; RESP 18–30; O2SAT 75–100
[~2023-02-17] VITALS: Ht 185.4 cm; Wt 75.0 kg
[~2023-02-17 17:57] MED LIST changes: +IBUP-1986 PO; +LIDO700A32 TOP
[2023-02-17] MEDS ORDERED: albuterol 2.5 MG/3 ML nebule NEB ONE (19:50)
[2023-02-17] MEDS ORDERED: methylPREDNISolone sod succ 125mg/2ml vial IV ONE (20:05)
[2023-02-17] MEDS ORDERED: normal saline 1000ML IV soln IVB ONE ×2 (20:05→20:25)
[2023-02-17] MEDS ORDERED: terbutaline 1 mg/ml inj SQ STA (20:06)
[2023-02-17] MEDS ORDERED: magnesium 2GM in 50ml NS 50 ML IV ONE (20:10)
[2023-02-17 20:17] LABS: BASOPHILS # (AUTO) 0.1 X10'3 (0-0.2); BASOPHILS % (AUTO) 0.6 % (0-1); EOSINOPHILS # (AUTO) 0.9 X10'3 (0-0.9); EOSINOPHILS % (AUTO) 5.5 % (0-6); HEMATOCRIT 52.1 % (42.0-52.0); LYMPHOCYTES # (AUTO) 4.2 X10'3 (1.1-4.8); LYMPHOCYTES % (AUTO) 25.8 % (21-51); MEAN CORPUSCULAR HEMOGLOBIN 30.6 PG (27.0-31.0); MEAN CORPUSCULAR HGB CONC 34.7 g/dL (33.0-36.5); MEAN CORPUSCULAR VOLUME 88.2 FL (78-98); MEAN PLATELET VOLUME 7.1 FL (7.4-10.4); MONOCYTES # (AUTO) 0.9 X10'3 (0-0.9); MONOCYTES % (AUTO) 5.3 % (2-12); NEUTROPHILS # (AUTO) 10.2 X10'3 (1.8-7.7); NEUTROPHILS % (AUTO) 62.8 % (42-75); PLATELET COUNT 284 X10'3 (140-440); RED BLOOD COUNT 5.91 X10'6 (4.70-6.10); RED CELL DISTRIBUTION WIDTH 13.3 % (11.5-14.5); WHITE BLOOD COUNT 16.3 X10'3 (4.5-11.0)
[2023-02-17] MEDS: albuterol 2.5 MG/3 ML nebule CONTNEB PRN ×2 (20:18→21:19)
[2023-02-17 20:26] LABS: HEMOGLOBIN 18.1 g/dl (14.0-17.9)
--- NOTE | 2023-02-17 20:29 | NUR ---
made aware of hemoglabin 18.1, orders to follow
[2023-02-17] MEDS ORDERED: midazolam 100mg in NS 100ml 100 ML IV PRN (20:30)
[2023-02-17] MEDS ORDERED: FENTANYL-0.9 % NACL/PF 100 ML IV PRN (20:30)
[2023-02-17] MEDS ORDERED: etomidate 2mg/ml inj. IV ONE (20:30)
[2023-02-17] MEDS ORDERED: succinylcholine 20mg/ml inj IV ONE ×2 (20:30→20:31)
[2023-02-17] MEDS ORDERED: LORazepam 2 mg/ml vial IV ONE (20:30)
[2023-02-17 20:31] LABS: APTT 31 SECONDS (22-32); PROTHROMBIN TIME 10.9 SECONDS (9.0-12.0)
[2023-02-17] MEDS ORDERED: iohexol 350MG/ML 100ml bottle IV ONE (20:35)
[2023-02-17] MEDS ORDERED: LIDOcaine 2% 10ml TOPICAL JELLY (Urojet) TP ONE (20:40)
[2023-02-17 20:41] LABS: D-DIMER < 0.19 MG/L FEU (0-0.50)
[2023-02-17 20:42] LABS: ALANINE AMINOTRANSFERASE 33 U/L (12-78); ALBUMIN 4.4 G/DL (3.4-5.0); ALBUMIN/GLOBULIN RATIO 1.3 (1.1-1.5); ALKALINE PHOSPHATASE 140 IU/L (46-116); ANION GAP 11 (8-16); BLOOD UREA NITROGEN 16 MG/DL (7-18); BUN/CREATININE RATIO 16.8 (10.0-20.0); CHLORIDE 105 MMOL/L (99-107); CREATININE 0.95 MG/DL (0.60-1.10); PRO BRAIN NATRIURETIC PEPTIDE 30 PG/ML (0-125); SODIUM 142 MMOL/L (135-145); TOTAL CARBON DIOXIDE 25.6 MMOL/L (24-32); TOTAL PROTEIN 7.9 G/DL (6.4-8.2); eCRCL 114 ML/MIN; eGFR 90 ML/MIN
[2023-02-17 21:13] LABS: C-REACTIVE PROTEIN < 0.05 MG/DL (0.0-0.5); GLUCOSE 155 MG/DL (70-104); POTASSIUM 3.9 MMOL/L (3.5-5.1)
[2023-02-17 21:17] LABS: ABG BASE EXCESS -9.3 mmol/L (-2.0-2.0); ABG HCO3 24.9 mmol/L (22.0-26.0); ABG OXYGEN SATURATION 97.9 % (94-97); ABG PCO2 (T) 93.5 mmHg (35.0-48.0); ABG PH (T) 7.037 (7.340-7.440); ABG PO2 (T) 152.1 mmHg (75.0-100.0); ALLEN'S TEST Modified; FCOHb 0.3 % (0.0-3.9); FHHb 2.1 % (0.0-5.0); FMetHb 0.6 % (0.0-1.5); MODE CMV PRVC IT 0.9; PATIENT TEMPERATURE 36.1; PEEP 5 cm H2O; RESPIRATORY RATE 18 b/min
[2023-02-17] MEDS: CefTRIAXone/D5W-Rocephin 1gm 50 ML IV SCH (21:37)
[2023-02-17 21:43] LABS: URINE AMPHETAMINE SCREEN NEGATIVE (Neg); URINE BARBITUATE SCREEN NEGATIVE (Neg); URINE BENZODIAZEPINES SCREEN NEGATIVE (Neg); URINE CANNABINOID SCREEN NEGATIVE (Neg); URINE COCAINE SCREEN NEGATIVE (Neg); URINE METHADONE SCREEN NEGATIVE (Neg); URINE OPIATE SCREEN NEGATIVE (Neg); URINE PHENCYCLIDINE SCREEN NEGATIVE (Neg)
[2023-02-17 21:49] LABS: ETHANOL < 10 MG/DL (<10)
[2023-02-17 21:55] LABS: ASPARTATE AMINO TRANSFERASE 17 U/L (10-37)
[2023-02-17 21:56] LABS: LIPASE 55 U/L (73-393)
[2023-02-17 22:02] LABS: CREATINE KINASE 192 U/L (39-308)
[2023-02-17] MEDS: ipratropium/albuterol 3ml nebule NEB SCH (23:15)
--- NOTE | 2023-02-17 23:58 | NUR ---
patient on a icu hospital bed
[2023-02-18] VITALS (36 sets, daily range): BP systolic 80–122; BP diastolic 43–70; PULSE 72–100; RESP 10–23; O2SAT 91–98
[2023-02-18] MEDS ORDERED: ipratropium 0.5 MG/2.5ML nebule NEB PRN (00:10)
[2023-02-18] MEDS ORDERED: LIDOcaine 2% 10ml TOPICAL JELLY (Urojet) TP ONE (00:10)
[2023-02-18] MEDS ORDERED: acetaminophen 325mg tablet PO PRN (00:10)
[2023-02-18] MEDS ORDERED: ondansetron/PF 4mg/2ml inj IV PRN (00:10)
[2023-02-18] MEDS ORDERED: albuterol 2.5 MG/3 ML nebule NEB PRN (00:10)
[2023-02-18] MEDS ORDERED: sodium phosphate inj. 30 MMOL in dextrose 5%-water 250 ML IV PRN (00:10)
[2023-02-18] MEDS ORDERED: sodium phosphate inj. 15 MMOL in dextrose 5%-water 250 ML IV PRN (00:10)
[2023-02-18] MEDS ORDERED: Neutra Phos packet PO PRN (00:10)
[2023-02-18] MEDS ORDERED: ipratropium/albuterol 3ml nebule NEB PRN (00:10)
[2023-02-18] MEDS ORDERED: magnesium hydroxide 30ml (MOM) UD suspension PO PRN (00:10)
[2023-02-18] MEDS: ringers solution, lacted 1,000 ML IV SCH ×2 (00:23→11:19)
--- NOTE | 2023-02-18 00:24 | NUR ---
PER [address] MAGISTRATE TURN FIO2 DOWN TO 75 % SEE HOW PATIENT DOES
--- NOTE | 2023-02-18 00:55 | NUR ---
TURNED FIO2 UP TO 100 % DUE TO PATIENTS SATURATION WENT TO 94% WHEN FIO2 TURNED DOWN TO 75%
[2023-02-18] MEDS ORDERED: LidoCAINE 2% Topical Jelly 11mL syringe TOP ONE (01:10)
[2023-02-18] MEDS ORDERED: dexmedetomidin/NS 400mcg/100ml 100 ML IV PRN (03:40)
[2023-02-18] MEDS: ipratropium/albuterol 3ml nebule NEB SCH ×6 (03:45→23:00)
--- NOTE | 2023-02-18 06:28 | NUR ---
Patient in room CICU 2006. I have received report from Jordan BECERRA and had the opportunity to ask questions and assume patient care.
[2023-02-18] MEDS: famotidine/PF 10 mg/ml inj IV SCH ×2 (07:42→20:24)
[2023-02-18] MEDS: methylPREDNISolone sod succ 125mg/2ml vial IV SCH ×2 (07:42→16:40)
[2023-02-18] MEDS: pantoprazole 40MG/NS 100ML BAG 100 ML IV SCH (07:51)
[2023-02-18] MEDS: CefTRIAXone/D5W-Rocephin 1gm 50 ML IV SCH (07:55)
[2023-02-18] MEDS: azithromycin/NS 500mg/250ml 250 ML IV SCH (07:56)
[2023-02-18] MEDS ORDERED: etomidate 2mg/ml inj. ONE (08:00)
[2023-02-18] MEDS ORDERED: ringers solution, lacted 1,000 ML IV STA ×2 (08:03)
[2023-02-18 08:47] LABS: BASOPHILS % (AUTO) 0.3 % (0-1); EOSINOPHILS % (AUTO) 0.1 % (0-6); HEMATOCRIT 48.7 % (42.0-52.0); HEMOGLOBIN 16.5 g/dl (14.0-17.9); LYMPHOCYTES # (AUTO) 0.5 X10'3 (1.1-4.8); LYMPHOCYTES % (AUTO) 4.2 % (21-51); MEAN CORPUSCULAR HGB CONC 33.8 g/dL (33.0-36.5); MEAN CORPUSCULAR VOLUME 88.6 FL (78-98); MEAN PLATELET VOLUME 7.4 FL (7.4-10.4); MONOCYTES # (AUTO) 0.5 X10'3 (0-0.9); MONOCYTES % (AUTO) 3.8 % (2-12); NEUTROPHILS # (AUTO) 11.4 X10'3 (1.8-7.7); NEUTROPHILS % (AUTO) 91.6 % (42-75); PLATELET COUNT 216 X10'3 (140-440); WHITE BLOOD COUNT 12.5 X10'3 (4.5-11.0)
[2023-02-18 08:57] LABS: ALANINE AMINOTRANSFERASE 27 U/L (12-78); ALBUMIN 3.5 G/DL (3.4-5.0); ALBUMIN/GLOBULIN RATIO 1.1 (1.1-1.5); ALKALINE PHOSPHATASE 118 IU/L (46-116); ANION GAP 12 (8-16); ASPARTATE AMINO TRANSFERASE 25 U/L (10-37); BILIRUBIN,TOTAL 1.1 MG/DL (0.1-1.0); BLOOD UREA NITROGEN 18 MG/DL (7-18); CALCIUM 8.7 MG/DL (8.5-10.1); CHLORIDE 105 MMOL/L (99-107); GLUCOSE 173 MG/DL (70-104); POTASSIUM 4.3 MMOL/L (3.5-5.1); SODIUM 139 MMOL/L (135-145); TOTAL PROTEIN 6.7 G/DL (6.4-8.2); eCRCL 120 ML/MIN; eGFR > 90 ML/MIN
--- NOTE | 2023-02-18 11:18 | NUR ---
Patient successfully extubated,Dr. Monica Ames at bedside,patient sating 94% on 4L.
--- NOTE | 2023-02-18 14:19 | NUR ---
Received a verbal order from Dr. Anderson to justa puente, downgrade patient and to do bedside swallow eval.Patient was able to tolerate water without difficulty however reports nausea afterwards, clear liquid diet ordered, advance as tolerated.
[2023-02-18] MEDS ORDERED: glucagon, human recombinant 1mg kit SUBCUT PRN (17:40)
[2023-02-18] MEDS ORDERED: DEXTROSE 15 GM of carb/4 tabs (each vial/BOTTLE has 4 tablets) PO PRN ×2 (17:40)
[2023-02-18] MEDS ORDERED: MESSAGE TO PHARMACY PO ONE (17:40)
[2023-02-18] MEDS ORDERED: insulin Lispro (HumaLOG) vial - multi-dose SQ SCH (17:40)
[2023-02-18] MEDS ORDERED: dextrose 50%-water 50ml dispensing syringe IV PRN ×2 (17:40)
--- NOTE | 2023-02-18 18:15 | NUR ---
Patient in room CICU 2006. I have received report from Rosario BECERRA and had the opportunity to ask questions and assume patient care.
--- NOTE | 2023-02-18 18:22 | NUR ---
Student documentation: I have reviewed and agree with all interventions, assessments performed and documented by Deysi.
[2023-02-18] MEDS ORDERED: IBUP-1986 PO (18:58)
--- NOTE | 2023-02-18 19:00 | NUR ---
Pt5 was C/O chest tightness, resident Edda was with the Pt and ordered an EKG. Dr Anderson checked and Dr. Brown was informed about the incident by the resident. Pt is resting comfortably now
[2023-02-18] MEDS ORDERED: LORazepam 1 MG tablet PO ONE (19:30)
[2023-02-18] MEDS ORDERED: ringers solution, lacted 1,000 ML IV ONE (19:30)
[2023-02-18] MEDS ORDERED: aspirin 81mg, enteric-coated 1 TAB TABLET.DR PO ONE (19:30)
[2023-02-18] MEDS: enoxaparin 40mg/0.4ml syringe SQ SCH (20:24)
[2023-02-18] MEDS: insulin glargine (Lantus) pen - multi-dose SQ SCH (21:00)
[2023-02-18] MEDS ORDERED: guaiFENesin/DM 10ml UD oral syrup PO PRN (21:50)
[2023-02-19] VITALS (21 sets, daily range): BP systolic 94–122; BP diastolic 39–69; PULSE 61–91; RESP 10–22; O2SAT 88–96
[2023-02-19] MEDS: ipratropium/albuterol 3ml nebule NEB SCH ×6 (03:13→22:57)
[2023-02-19] MEDS: methylPREDNISolone sod succ 125mg/2ml vial IV SCH ×3 (03:16→15:49)
[2023-02-19] MEDS: ringers solution, lacted 1,000 ML IV SCH ×2 (03:26→15:57)
--- NOTE | 2023-02-19 06:13 | NUR ---
Problems reprioritized. Patient report given, questions answered & plan of care reviewed with Julio C BECERRA.
[2023-02-19] MEDS: acetaminophen 325mg tablet PO PRN (07:36)
[2023-02-19 07:52] LABS: BASOPHILS % (AUTO) 0.2 % (0-1); EOSINOPHILS % (AUTO) 0.1 % (0-6); HEMATOCRIT 45.7 % (42.0-52.0); HEMOGLOBIN 15.6 g/dl (14.0-17.9); LYMPHOCYTES # (AUTO) 0.9 X10'3 (1.1-4.8); LYMPHOCYTES % (AUTO) 4.7 % (21-51); MEAN CORPUSCULAR HEMOGLOBIN 30.1 PG (27.0-31.0); MEAN CORPUSCULAR HGB CONC 34.1 g/dL (33.0-36.5); MEAN CORPUSCULAR VOLUME 88.1 FL (78-98); MEAN PLATELET VOLUME 7.6 FL (7.4-10.4); MONOCYTES # (AUTO) 0.3 X10'3 (0-0.9); MONOCYTES % (AUTO) 1.9 % (2-12); NEUTROPHILS # (AUTO) 17.2 X10'3 (1.8-7.7); NEUTROPHILS % (AUTO) 93.1 % (42-75); PLATELET COUNT 205 X10'3 (140-440); RED BLOOD COUNT 5.19 X10'6 (4.70-6.10); RED CELL DISTRIBUTION WIDTH 13.2 % (11.5-14.5); WHITE BLOOD COUNT 18.4 X10'3 (4.5-11.0)
[2023-02-19 08:03] LABS: ALBUMIN 3.5 G/DL (3.4-5.0); ANION GAP 9 (8-16); BLOOD UREA NITROGEN 15 MG/DL (7-18); CALCIUM 8.9 MG/DL (8.5-10.1); CHLORIDE 103 MMOL/L (99-107); CREATININE 0.79 MG/DL (0.60-1.10); GLUCOSE 138 MG/DL (70-104); POTASSIUM 4.3 MMOL/L (3.5-5.1); SODIUM 138 MMOL/L (135-145); TOTAL CARBON DIOXIDE 26.3 MMOL/L (24-32); eCRCL 137 ML/MIN; eGFR > 90 ML/MIN
[2023-02-19] MEDS: pantoprazole 40MG/NS 100ML BAG 100 ML IV SCH (08:30)
[2023-02-19] MEDS: famotidine/PF 10 mg/ml inj IV SCH ×2 (08:30→19:53)
[2023-02-19] MEDS: CefTRIAXone/D5W-Rocephin 1gm 50 ML IV SCH (08:30)
[2023-02-19] MEDS: azithromycin/NS 500mg/250ml 250 ML IV SCH (08:31)
[2023-02-19] MEDS ORDERED: iohexol 300mg/ml 100ml inj. ONE (16:27)
[2023-02-19] MEDS: enoxaparin 40mg/0.4ml syringe SQ SCH (19:54)
[2023-02-19] MEDS: insulin glargine (Lantus) pen - multi-dose SQ SCH (21:00)
[2023-02-20] VITALS (13 sets, daily range): BP systolic 108–121; BP diastolic 57–69; PULSE 56–75; RESP 8–20; O2SAT 90–95
[2023-02-20] MEDS: ipratropium/albuterol 3ml nebule NEB SCH ×6 (03:00→23:00)
--- NOTE | 2023-02-20 04:17 | NUR ---
Patient has denied taking blood pressure and is becoming more hostile with staff
[2023-02-20] MEDS: ringers solution, lacted 1,000 ML IV SCH (05:30)
--- NOTE | 2023-02-20 06:30 | NUR ---
Patient in room CICU 2006. I have received report from HERNAN Vance and had the opportunity to ask questions and assume patient care.
[2023-02-20] MEDS: azithromycin/NS 500mg/250ml 250 ML IV SCH (08:31)
[2023-02-20] MEDS: methylPREDNISolone sod succ 125mg/2ml vial IV SCH ×3 (08:34→16:15)
[2023-02-20] MEDS: famotidine/PF 10 mg/ml inj IV SCH (08:35)
[2023-02-20] MEDS: pantoprazole 40MG/NS 100ML BAG 100 ML IV SCH (08:38)
[2023-02-20] MEDS: CefTRIAXone/D5W-Rocephin 1gm 50 ML IV SCH (09:49)
[2023-02-20] MEDS: acetaminophen 325mg tablet PO PRN (10:24)
[2023-02-20 11:47] LABS: BASOPHILS % (AUTO) 0.2 % (0-1); EOSINOPHILS % (AUTO) 0.2 % (0-6); HEMOGLOBIN 15.6 g/dl (14.0-17.9); LYMPHOCYTES # (AUTO) 1.2 X10'3 (1.1-4.8); LYMPHOCYTES % (AUTO) 8.5 % (21-51); MEAN CORPUSCULAR HEMOGLOBIN 30.1 PG (27.0-31.0); MEAN CORPUSCULAR VOLUME 88.5 FL (78-98); MEAN PLATELET VOLUME 7.6 FL (7.4-10.4); MONOCYTES # (AUTO) 0.5 X10'3 (0-0.9); MONOCYTES % (AUTO) 3.9 % (2-12); NEUTROPHILS # (AUTO) 12.2 X10'3 (1.8-7.7); NEUTROPHILS % (AUTO) 87.2 % (42-75); PLATELET COUNT 216 X10'3 (140-440); RED BLOOD COUNT 5.19 X10'6 (4.70-6.10); RED CELL DISTRIBUTION WIDTH 13.1 % (11.5-14.5)
[2023-02-20 11:52] LABS: ALANINE AMINOTRANSFERASE 29 U/L (12-78); ALBUMIN 3.4 G/DL (3.4-5.0); ALBUMIN/GLOBULIN RATIO 1.1 (1.1-1.5); ALKALINE PHOSPHATASE 97 IU/L (46-116); ANION GAP 11 (8-16); ASPARTATE AMINO TRANSFERASE 15 U/L (10-37); BILIRUBIN,TOTAL 0.8 MG/DL (0.1-1.0); BLOOD UREA NITROGEN 18 MG/DL (7-18); BUN/CREATININE RATIO 20.2 (10.0-20.0); CALCIUM 8.6 MG/DL (8.5-10.1); CHLORIDE 102 MMOL/L (99-107); CREATININE 0.89 MG/DL (0.60-1.10); GLUCOSE 123 MG/DL (70-104); POTASSIUM 4.2 MMOL/L (3.5-5.1); SODIUM 139 MMOL/L (135-145); TOTAL CARBON DIOXIDE 26.4 MMOL/L (24-32); TOTAL PROTEIN 6.5 G/DL (6.4-8.2); eCRCL 122 ML/MIN; eGFR > 90 ML/MIN
[2023-02-20] MEDS ORDERED: furosemide 20 MG/2 ML vial IV ONE (16:00)
--- NOTE | 2023-02-20 17:30 | NUR ---
Problems reprioritized. Patient report given, questions answered & plan of care reviewed with HERNAN George.
[2023-02-20] MEDS: budesonide 0.5mg/2ml UD nebule IH SCH (19:32)
[2023-02-20] MEDS: enoxaparin 40mg/0.4ml syringe SQ SCH (19:43)
[2023-02-20] MEDS: insulin glargine (Lantus) pen - multi-dose SQ SCH (21:00)
[2023-02-20] MEDS ORDERED: albuterol 2.5 MG/3 ML nebule NEB SCH (21:00)
--- NOTE | 2023-02-20 22:00 | NUR ---
patient refused vitals for 2199
[2023-02-21] VITALS (16 sets, daily range): BP systolic 104–117; BP diastolic 69–76; PULSE 55–83; RESP 16–20; TEMP 97.7–98.3; O2SAT 93–98
[2023-02-21] MEDS: ipratropium/albuterol 3ml nebule NEB SCH ×6 (03:00→23:12)
--- NOTE | 2023-02-21 06:56 | NUR ---
Patient in room PCU 3012A. I have received report from ANNEMARIE LIMON and had the opportunity to ask questions and assume patient care.
[2023-02-21] MEDS: budesonide 0.5mg/2ml UD nebule IH SCH ×2 (07:16→19:06)
--- NOTE | 2023-02-21 07:19 | NUR ---
This RN has reviewed and agrees w/the SANITATION LABORER's physical assessment of this patient.
[2023-02-21] MEDS ORDERED: pantoprazole 40mg Tablet.DR PO SCH (07:30)
[2023-02-21 08:05] LABS: BASOPHILS # (AUTO) 0.2 X10'3 (0-0.2); BASOPHILS % (AUTO) 0.9 % (0-1); EOSINOPHILS # (AUTO) 0.1 X10'3 (0-0.9); EOSINOPHILS % (AUTO) 0.4 % (0-6); HEMATOCRIT 48.3 % (42.0-52.0); HEMOGLOBIN 16.4 g/dl (14.0-17.9); LYMPHOCYTES # (AUTO) 3.2 X10'3 (1.1-4.8); LYMPHOCYTES % (AUTO) 18.6 % (21-51); MEAN CORPUSCULAR HEMOGLOBIN 29.9 PG (27.0-31.0); MEAN PLATELET VOLUME 7.6 FL (7.4-10.4); MONOCYTES # (AUTO) 1.1 X10'3 (0-0.9); MONOCYTES % (AUTO) 6.2 % (2-12); NEUTROPHILS # (AUTO) 12.6 X10'3 (1.8-7.7); NEUTROPHILS % (AUTO) 73.9 % (42-75); PLATELET COUNT 234 X10'3 (140-440); RED BLOOD COUNT 5.49 X10'6 (4.70-6.10); RED CELL DISTRIBUTION WIDTH 12.9 % (11.5-14.5)
[2023-02-21 08:53] LABS: ALBUMIN 3.5 G/DL (3.4-5.0); BLOOD UREA NITROGEN 17 MG/DL (7-18); POTASSIUM 4.1 MMOL/L (3.5-5.1)
[2023-02-21 09:06] LABS: ANION GAP 14 (8-16); BUN/CREATININE RATIO 22.1 (10.0-20.0); CHLORIDE 102 MMOL/L (99-107); CREATININE 0.77 MG/DL (0.60-1.10); GLUCOSE 109 MG/DL (70-104); SODIUM 139 MMOL/L (135-145); TOTAL CARBON DIOXIDE 23.3 MMOL/L (24-32); eCRCL 141 ML/MIN; eGFR > 90 ML/MIN
[2023-02-21] MEDS: methylPREDNISolone sod succ 125mg/2ml vial IV SCH ×2 (09:40)
[2023-02-21] MEDS: CefTRIAXone/D5W-Rocephin 1gm 50 ML IV SCH (09:58)
[2023-02-21 11:18] LABS: ABG BASE EXCESS 1.1 mmol/L (-2.0-2.0); ABG HCO3 25.1 mmol/L (22.0-26.0); ABG OXYGEN SATURATION 91.2 % (94-97); ABG PCO2 (T) 37.8 mmHg (35.0-48.0); ABG PH (T) 7.439 (7.340-7.440); ABG PO2 (T) 58.1 mmHg (75.0-100.0); ALLEN'S TEST POSITIVE; FCOHb 0.1 % (0.0-3.9); FHHb 8.8 % (0.0-5.0); FLOW 4 L/min; FMetHb 0.3 % (0.0-1.5); FO2Hb 90.8 % (94-97); MODE NC; PATIENT TEMPERATURE 36.8; TOTAL HEMOGLOBIN 17.5 G/dl (14.0-17.9)
[2023-02-21] MEDS: pantoprazole 40mg Tablet.DR PO SCH ×2 (12:10→19:54)
[2023-02-21] MEDS: methylPREDNISolone sod succ/PF 40mg inj. IV SCH ×2 (12:10→22:08)
[2023-02-21] MEDS: azithromycin/NS 500mg/250ml 250 ML IV SCH (12:11)
[2023-02-21 13:12] LABS: D-DIMER < 0.19 MG/L FEU (0-0.50)
--- NOTE | 2023-02-21 18:43 | NUR ---
Problems reprioritized. Patient report given, questions answered & plan of care reviewed with BEN, MEDICAL INSURANCE CODER.
[2023-02-21] MEDS: enoxaparin 40mg/0.4ml syringe SQ SCH (19:55)
[2023-02-22] VITALS (15 sets, daily range): BP systolic 110–126; BP diastolic 62–87; PULSE 58–85; RESP 16–18; TEMP 96.8–99; O2SAT 92–97
[2023-02-22] MEDS: ipratropium/albuterol 3ml nebule NEB SCH ×6 (03:00→22:47)
--- NOTE | 2023-02-22 05:32 | NUR ---
AGREE WITH GENERAL PRACTICE ASSESSMENT
--- NOTE | 2023-02-22 06:14 | NUR ---
Patient in room PCU 3012A. I have received report from ANNEMARIE CONTRERAS and had the opportunity to ask questions and assume patient care.
[2023-02-22 06:53] LABS: BASOPHILS # (AUTO) 0.1 X10'3 (0-0.2); BASOPHILS % (AUTO) 0.7 % (0-1); EOSINOPHILS # (AUTO) 0.2 X10'3 (0-0.9); EOSINOPHILS % (AUTO) 1.3 % (0-6); HEMATOCRIT 49.3 % (42.0-52.0); HEMOGLOBIN 17.1 g/dl (14.0-17.9); LYMPHOCYTES # (AUTO) 3.8 X10'3 (1.1-4.8); LYMPHOCYTES % (AUTO) 28.3 % (21-51); MEAN CORPUSCULAR HEMOGLOBIN 30.3 PG (27.0-31.0); MEAN CORPUSCULAR HGB CONC 34.7 g/dL (33.0-36.5); MEAN CORPUSCULAR VOLUME 87.3 FL (78-98); MEAN PLATELET VOLUME 7.3 FL (7.4-10.4); MONOCYTES # (AUTO) 0.9 X10'3 (0-0.9); MONOCYTES % (AUTO) 6.4 % (2-12); NEUTROPHILS # (AUTO) 8.6 X10'3 (1.8-7.7); NEUTROPHILS % (AUTO) 63.3 % (42-75); PLATELET COUNT 216 X10'3 (140-440); RED BLOOD COUNT 5.64 X10'6 (4.70-6.10); WHITE BLOOD COUNT 13.5 X10'3 (4.5-11.0)
[2023-02-22 07:00] LABS: ALBUMIN 3.4 G/DL (3.4-5.0); ANION GAP 10 (8-16); BLOOD UREA NITROGEN 21 MG/DL (7-18); CALCIUM 9.1 MG/DL (8.5-10.1); CHLORIDE 102 MMOL/L (99-107); CREATININE 0.84 MG/DL (0.60-1.10); GLUCOSE 104 MG/DL (70-104); POTASSIUM 3.7 MMOL/L (3.5-5.1); SODIUM 137 MMOL/L (135-145); TOTAL CARBON DIOXIDE 25.3 MMOL/L (24-32); eCRCL 129 ML/MIN; eGFR > 90 ML/MIN
[2023-02-22] MEDS: methylPREDNISolone sod succ/PF 40mg inj. IV SCH ×2 (07:54→19:44)
[2023-02-22] MEDS: pantoprazole 40mg Tablet.DR PO SCH ×2 (07:54→19:44)
[2023-02-22] MEDS: azithromycin/NS 500mg/250ml 250 ML IV SCH (07:54)
[2023-02-22] MEDS: budesonide 0.5mg/2ml UD nebule IH SCH ×2 (08:41→19:24)
[2023-02-22 11:50] LABS: ABG BASE EXCESS -2.4 mmol/L (-2.0-2.0); ABG HCO3 23.8 mmol/L (22.0-26.0); ABG OXYGEN SATURATION 98.7 % (94-97); ABG PCO2 (T) 43.3 mmHg (35.0-48.0); ABG PH (T) 7.352 (7.340-7.440); ABG PO2 (T) 153.7 mmHg (75.0-100.0); ALLEN'S TEST POSITIVE; FCOHb 0.3 % (0.0-3.9); FHHb 1.3 % (0.0-5.0); FMetHb 0.4 % (0.0-1.5); MODE VENT - AC; PATIENT TEMPERATURE 35.7; PEEP 5 cm H2O; RESPIRATORY RATE 20 b/min; TIDAL VOLUME 450 mL; TOTAL HEMOGLOBIN 17.4 G/dl (14.0-17.9)
[2023-02-22] MEDS: acetaminophen 325mg tablet PO PRN ×2 (12:50→19:44)
--- NOTE | 2023-02-22 18:40 | NUR ---
Patient in room PCU 3012. I have received report from Mari perry and had the opportunity to ask questions and assume patient care.
--- NOTE | 2023-02-22 18:50 | NUR ---
Problems reprioritized. Patient report given, questions answered & plan of care reviewed with HERNAN PAEZ.
[2023-02-22] MEDS: enoxaparin 40mg/0.4ml syringe SQ SCH (19:48)
--- NOTE | 2023-02-23 02:30 | NUR ---
Patient refused for 2am VS to be taken.
[2023-02-23] MEDS: ipratropium/albuterol 3ml nebule NEB SCH ×4 (02:34→15:51)
--- NOTE | 2023-02-23 06:00 | NUR ---
Patient in room PCU 3012. I have received report from Tamai BECERRA and had the opportunity to ask questions and assume patient care.
--- NOTE | 2023-02-23 06:20 | NUR ---
Problems reprioritized. Patient report given, questions answered & plan of care reviewed with Kely BECERRA.
[2023-02-23 07:51] LABS: BASOPHILS # (AUTO) 0.1 X10'3 (0-0.2); BASOPHILS % (AUTO) 0.5 % (0-1); EOSINOPHILS % (AUTO) 0.2 % (0-6); HEMATOCRIT 50.7 % (42.0-52.0); HEMOGLOBIN 17.5 g/dl (14.0-17.9); LYMPHOCYTES # (AUTO) 2.7 X10'3 (1.1-4.8); LYMPHOCYTES % (AUTO) 13.8 % (21-51); MEAN CORPUSCULAR HEMOGLOBIN 30.2 PG (27.0-31.0); MEAN CORPUSCULAR HGB CONC 34.4 g/dL (33.0-36.5); MEAN CORPUSCULAR VOLUME 87.6 FL (78-98); MEAN PLATELET VOLUME 7.4 FL (7.4-10.4); MONOCYTES # (AUTO) 1.2 X10'3 (0-0.9); NEUTROPHILS # (AUTO) 15.4 X10'3 (1.8-7.7); NEUTROPHILS % (AUTO) 79.5 % (42-75); PLATELET COUNT 270 X10'3 (140-440); RED BLOOD COUNT 5.79 X10'6 (4.70-6.10); RED CELL DISTRIBUTION WIDTH 13.1 % (11.5-14.5); WHITE BLOOD COUNT 19.3 X10'3 (4.5-11.0)
[2023-02-23 07:59] VITALS: PULSE 76; PULSE 78; RESP 16; O2SAT 92
[2023-02-23 08:00] VITALS: RESP 16; O2SAT 95
[2023-02-23] MEDS: budesonide 0.5mg/2ml UD nebule IH SCH (08:00)
[2023-02-23] MEDS: azithromycin/NS 500mg/250ml 250 ML IV SCH (08:24)
[2023-02-23] MEDS: pantoprazole 40mg Tablet.DR PO SCH (08:25)
[2023-02-23] MEDS: methylPREDNISolone sod succ/PF 40mg inj. IV SCH (08:25)
[2023-02-23 08:32] LABS: ALBUMIN 3.4 G/DL (3.4-5.0); ANION GAP 11 (8-16); BLOOD UREA NITROGEN 19 MG/DL (7-18); BUN/CREATININE RATIO 22.9 (10.0-20.0); CALCIUM 8.7 MG/DL (8.5-10.1); CHLORIDE 101 MMOL/L (99-107); CREATININE 0.83 MG/DL (0.60-1.10); GLUCOSE 122 MG/DL (70-104); POTASSIUM 4.1 MMOL/L (3.5-5.1); SODIUM 137 MMOL/L (135-145); TOTAL CARBON DIOXIDE 24.6 MMOL/L (24-32); eCRCL 131 ML/MIN; eGFR > 90 ML/MIN
[2023-02-23] MEDS ORDERED: PRED10TA23 PO ×2 (10:02→10:34)
[2023-02-23] MEDS ORDERED: AZIT500T9 PO (10:02)
[2023-02-23] MEDS ORDERED: GUAI400T92 PO ×2 (10:02→10:34)
[2023-02-23] MEDS ORDERED: PANT40TA54 PO ×2 (10:02→10:34)
[2023-02-23] MEDS ORDERED: IPRA3AMP9 NEB (10:07)
[2023-02-23] MEDS ORDERED: ATR0.5NEB NEB (10:07)
[2023-02-23] MEDS ORDERED: ADV50250 IH (10:34)
[2023-02-23] MEDS ORDERED: LEVO-65 PO (10:34)
--- NOTE | 2023-02-23 10:46 | NUR ---
Initial: Pt admit for respiratory failure with asthma exacerbation. Diet was advanced to regular 02/19 and pt has been eating well, documented with 100% PO intake of all meals on regular diet with the exception of 50% PO intake at dinner last night. Overall pt meeting estimated nutrient needs. Per EMR LBM 02/22, documented as large. No nutrition intervention implemented at this time. Will continue to follow and make recommendations as appropriate. Recommendations: 1) Continue regular diet; CHO controlled diet not warranted given A1c 5.5% 01/22 2) Bowel care PRN 3) Weekly scaled weights Addendum: 02/23/23 at [address] Amended: Links added.
[2023-02-23 11:19] VITALS: PULSE 78; PULSE 85; RESP 16; O2SAT 92
--- NOTE | 2023-02-23 15:23 | NUR ---
PAGER ID: [phone] MESSAGE: [id number], Onesimo Combs. Pt says he wants to leave [facility]. Kely [facility] [phone]
[2023-02-23 15:52] VITALS: PULSE 78; PULSE 85; RESP 16; O2SAT 92
--- NOTE | 2023-02-23 15:52 | NUR ---
RT found patient on RA at 95%. No distress noted. Addendum: 02/23/23 at 1553 by Miladis Becerra RT Amended: Links added.
--- NOTE | 2023-02-23 16:07 | NUR ---
Patient left AMA, I educated the patient on the risks of leaving and he still insisted if the doctors do not discharge then he was going to leave AMA. He said as long as he has breathing treatments to get him through then he will be ok. I informed him that the doctor did not think it was safe for him to leave yet, he needed to be discharged with home O2. He is homeless though and we cannot get him home O2 if he doesn't have a residence. The patient was not happy about this and said he was going to leave. Pt left at 1605. Dr. Hanson signed the AMA form.
== END 2023-02-23 16:05 | disposition left against medical advice (07) | DRG 133 ==
LOC: ER 17:58 → ED HOLD 02-18 00:20 → CICU 2S 02-18 02:20 → PCU 3S 02-20 17:47
PROVIDERS: ADMIT Internal Medicine Critical Care Medicine; ATTEND Internal Medicine
PROC: 5A1935Z Respiratory Ventilation, Less than 24 Consecutive Hours (ICD-10-PCS; 2023-02-17)
PROC: 0BH17EZ Insertion of Endotracheal Airway into Trachea, Via Natural or Artificial Opening (ICD-10-PCS; 2023-02-17)
PROC: B32T1ZZ Computerized Tomography (CT Scan) of Left Pulmonary Artery using Low Osmolar Contrast (ICD-10-PCS; 2023-02-17)
PROC: B3201ZZ Computerized Tomography (CT Scan) of Thoracic Aorta using Low Osmolar Contrast (ICD-10-PCS; 2023-02-17)
PROC: B32S1ZZ Computerized Tomography (CT Scan) of Right Pulmonary Artery using Low Osmolar Contrast (ICD-10-PCS; 2023-02-17)
PROC: 5A09357 Assistance with Respiratory Ventilation, Less than 24 Consecutive Hours, Continuous Positive Airway Pressure (ICD-10-PCS; principal; 2023-02-18)
PROC: BW241ZZ Computerized Tomography (CT Scan) of Chest and Abdomen using Low Osmolar Contrast (ICD-10-PCS; 2023-02-19)
DX: J96.21 Acute and chronic respiratory failure with hypoxia (principal); J45.902 Unspecified asthma with status asthmaticus; E87.29 Other acidosis; R56.9 Unspecified convulsions; E11.9 Type 2 diabetes mellitus without complications; D75.1 Secondary polycythemia; E78.5 Hyperlipidemia, unspecified; J43.9 Emphysema, unspecified; F41.9 Anxiety disorder, unspecified; F43.10 Post-traumatic stress disorder, unspecified; J96.22 Acute and chronic respiratory failure with hypercapnia; Z20.822 Contact with and (suspected) exposure to COVID-19; M54.50 Low back pain, unspecified; Z53.29 Procedure and treatment not carried out because of patient's decision for other reasons; G89.4 Chronic pain syndrome; I10 Essential (primary) hypertension; X50.1XXA Overexertion from prolonged static or awkward postures, initial encounter; Z87.891 Personal history of nicotine dependence; Z88.8 Allergy status to other drugs, medicaments and biological substances; Z79.899 Other long term (current) drug therapy
CPT/HCPCS: 36415; 36600; 71045; 71260; 71275; 73030; 80048; 80053; 80305; 80320; 82550; 82803; 82948; 83605; 83690; 83880; 84145; 84484; 85018; 85025; 85379; 85610; 85730; 86140; 87040; 87081; 87502; 87503; 87811; 93005; 93306; 94002; 94003; 94640; 94760; 94799; 99285; A4615; A6258; A7015; C1758; C9113; G0378; J0330; J0456; J0696; J1650; J1815; J2060; J2405; J2920; J2930; J3010; J3105; J3475; J3490; J7030; J7040; J7120; Q9967

== ENCOUNTER 2023-02-27 17:40 | Inpatient (IN) | payer MEDICAID ==
[~2023-02-27] VITALS: Ht 185.4 cm; Wt 94.5 kg
[~2023-02-27 17:40] MED LIST changes: +ADV50250 IH; -ATOR20TA66 PO; -AZI25OT PO; -BUDE10.27 IH; -CEFD300C3 PO; -FLUT12AE22 PO; +GUAI400T92 PO; -IBUP-1986 PO; -LACT1CAP74 PO; +LEVO-65 PO; -LIDO700A32 TOP; +PANT40TA54 PO; -PRED10TA PO; +PRED10TA23 PO
[2023-02-27 18:08] LABS: BASOPHILS # (AUTO) 0.1 X10'3 (0-0.2); BASOPHILS % (AUTO) 0.9 % (0-1); EOSINOPHILS # (AUTO) 0.3 X10'3 (0-0.9); EOSINOPHILS % (AUTO) 2.4 % (0-6); HEMOGLOBIN 15.4 g/dl (14.0-17.9); LYMPHOCYTES # (AUTO) 1.9 X10'3 (1.1-4.8); LYMPHOCYTES % (AUTO) 17.4 % (21-51); MEAN CORPUSCULAR HEMOGLOBIN 30.2 PG (27.0-31.0); MEAN CORPUSCULAR HGB CONC 35.1 g/dL (33.0-36.5); MEAN CORPUSCULAR VOLUME 86.1 FL (78-98); MEAN PLATELET VOLUME 7.1 FL (7.4-10.4); MONOCYTES # (AUTO) 0.9 X10'3 (0-0.9); MONOCYTES % (AUTO) 8.5 % (2-12); NEUTROPHILS # (AUTO) 7.8 X10'3 (1.8-7.7); NEUTROPHILS % (AUTO) 70.8 % (42-75); PLATELET COUNT 197 X10'3 (140-440); RED BLOOD COUNT 5.11 X10'6 (4.70-6.10)
[2023-02-27 18:26] LABS: ALANINE AMINOTRANSFERASE 101 U/L (12-78); ALBUMIN 3.4 G/DL (3.4-5.0); ALBUMIN/GLOBULIN RATIO 1.2 (1.1-1.5); ALKALINE PHOSPHATASE 107 IU/L (46-116); ANION GAP 8 (8-16); ASPARTATE AMINO TRANSFERASE 56 U/L (10-37); BILIRUBIN,TOTAL 1.2 MG/DL (0.1-1.0); BLOOD UREA NITROGEN 14 MG/DL (7-18); BUN/CREATININE RATIO 14.9 (10.0-20.0); CALCIUM 8.1 MG/DL (8.5-10.1); CHLORIDE 106 MMOL/L (99-107); CREATININE 0.94 MG/DL (0.60-1.10); GLUCOSE 145 MG/DL (70-104); POTASSIUM 3.2 MMOL/L (3.5-5.1); SODIUM 139 MMOL/L (135-145); TOTAL CARBON DIOXIDE 24.8 MMOL/L (24-32); TOTAL PROTEIN 6.3 G/DL (6.4-8.2); eGFR > 90 ML/MIN
[2023-02-27 18:33] LABS: PRO BRAIN NATRIURETIC PEPTIDE 37 PG/ML (0-125)
[2023-02-27 18:46] LABS: TOTAL CELLS COUNTED 100
[2023-02-27 18:47] LABS: PLATELET ESTIMATE NORMAL
[2023-02-27] MEDS ORDERED: potassium chloride 8mEq ER tablet PO STA (19:33)
[2023-02-27] MEDS ORDERED: methylPREDNISolone sod succ 125mg/2ml vial IV STA (19:43)
[2023-02-27] MEDS ORDERED: ipratropium/albuterol 3ml nebule NEB ONE (19:45)
[2023-02-27 19:56] VITALS: PULSE 87; RESP 16; O2SAT 97
[2023-02-27 20:00] VITALS: PULSE 90; RESP 16; O2SAT 100
[2023-02-27] MEDS ORDERED: magnesium Cl slow-release 64mg tablet PO PRN (20:40)
[2023-02-27] MEDS ORDERED: ondansetron/PF 4mg/2ml inj IV PRN (20:40)
[2023-02-27] MEDS ORDERED: acetaminophen 325mg tablet PO PRN (20:40)
[2023-02-27] MEDS ORDERED: potassium Cl 20 mEq SR tablet PO PRN ×2 (20:40)
[2023-02-27] MEDS ORDERED: magnesium hydroxide 30ml (MOM) UD suspension PO PRN (20:40)
[2023-02-27] MEDS ORDERED: potassium Cl 40MEQ/1/2NS 520ml 520 ML IV PRN (20:40)
[2023-02-27] MEDS ORDERED: magnesium 2GM in 50ml NS 50 ML IV PRN (20:40)
[2023-02-27] MEDS ORDERED: mag hydrox/Alum hydrox/simeth 30ml oral suspension PO PRN (20:40)
[2023-02-27] MEDS ORDERED: morphine 2 MG/ML inj. syringe IV PRN (20:40)
[2023-02-27] MEDS ORDERED: magnesium 4gm in 100ml NS 100 ML IV PRN (20:40)
[2023-02-27] MEDS ORDERED: HYDROcodone/acetaminophen 5mg/325mg tablet PO PRN (20:40)
[2023-02-27] MEDS: HYDROcodone/acetaminophen 10/325mg tab PO PRN (21:56)
[2023-02-28] VITALS (16 sets, daily range): BP systolic 111–130; BP diastolic 66–79; PULSE 72–85; RESP 16–22; TEMP 97.6–98.2; O2SAT 93–98
[2023-02-28] MEDS: HYDROcodone/acetaminophen 10/325mg tab PO PRN ×3 (04:35→21:11)
--- NOTE | 2023-02-28 06:27 | NUR ---
PT REQ RESP TX. RT PAGED.
[2023-02-28] MEDS: ipratropium/albuterol 3ml nebule NEB PRN ×4 (06:36→19:37)
--- NOTE | 2023-02-28 07:22 | NUR ---
PT REPORTS HE IS DM2. RN WILL CK SUGAR P/T CALLING REPORT.
--- NOTE | 2023-02-28 07:30 | NUR ---
Received patient report from ER nurse Sharon RN. Patient will be coming on a gurney or
--- NOTE | 2023-02-28 07:50 | NUR ---
Patient arrived to unit via gurney accompanied by ER nurse.
[2023-02-28] MEDS: docusate sod 100mg capsule PO SCH ×2 (08:00→20:00)
[2023-02-28] MEDS: K and/or MAG REPLACEMENT MC SCH ×2 (08:00→20:00)
[2023-02-28] MEDS: enoxaparin 40mg/0.4ml syringe SUBCUT SCH (08:07)
[2023-02-28] MEDS: methylPREDNISolone sod succ 125mg/2ml vial IV SCH ×3 (08:39→21:04)
[2023-02-28 10:34] LABS: BASOPHILS # (AUTO) 0.1 X10'3 (0-0.2); BASOPHILS % (AUTO) 0.9 % (0-1); EOSINOPHILS % (AUTO) 0 % (0-6); HEMATOCRIT 47.8 % (42.0-52.0); HEMOGLOBIN 16.3 g/dl (14.0-17.9); LYMPHOCYTES # (AUTO) 0.6 X10'3 (1.1-4.8); LYMPHOCYTES % (AUTO) 3.8 % (21-51); MEAN CORPUSCULAR HEMOGLOBIN 29.8 PG (27.0-31.0); MEAN CORPUSCULAR HGB CONC 34.1 g/dL (33.0-36.5); MEAN CORPUSCULAR VOLUME 87.5 FL (78-98); MEAN PLATELET VOLUME 7.5 FL (7.4-10.4); MONOCYTES # (AUTO) 0.1 X10'3 (0-0.9); MONOCYTES % (AUTO) 0.6 % (2-12); NEUTROPHILS # (AUTO) 14.8 X10'3 (1.8-7.7); NEUTROPHILS % (AUTO) 94.7 % (42-75); PLATELET COUNT 217 X10'3 (140-440); RED BLOOD COUNT 5.47 X10'6 (4.70-6.10); RED CELL DISTRIBUTION WIDTH 13.4 % (11.5-14.5); WHITE BLOOD COUNT 15.6 X10'3 (4.5-11.0)
[2023-02-28 10:50] LABS: ALANINE AMINOTRANSFERASE 117 U/L (12-78); ALBUMIN 3.4 G/DL (3.4-5.0); ALKALINE PHOSPHATASE 112 IU/L (46-116); ANION GAP 9 (8-16); ASPARTATE AMINO TRANSFERASE 59 U/L (10-37); BLOOD UREA NITROGEN 17 MG/DL (7-18); BUN/CREATININE RATIO 22.4 (10.0-20.0); CALCIUM 8.7 MG/DL (8.5-10.1); CHLORIDE 103 MMOL/L (99-107); CREATININE 0.76 MG/DL (0.60-1.10); GLUCOSE 200 MG/DL (70-104); MAGNESIUM 2.1 MG/DL (1.5-2.4); SODIUM 136 MMOL/L (135-145); TOTAL CARBON DIOXIDE 24.5 MMOL/L (24-32); TOTAL PROTEIN 6.7 G/DL (6.4-8.2); eCRCL 152 ML/MIN; eGFR > 90 ML/MIN
[2023-02-28 11:04] LABS: PLATELET ESTIMATE NORMAL; TOTAL CELLS COUNTED 100
--- NOTE | 2023-02-28 13:06 | NUR ---
AGREE WITH OPERATOR ASSISTANT I CEMENTING AM ASSESSMENT
--- NOTE | 2023-02-28 13:30 | NUR ---
Spoke with Dr Howard about patient being a diabetic. gave order for Hypo/hyper glycemic protocol
[2023-02-28] MEDS ORDERED: azithromycin 250mg tablet PO ONE (13:55)
--- NOTE | 2023-02-28 14:15 | NUR ---
DM consult: Per EMR pt with T2DM, well controlled with most recent A1c 5.5% 01/22 which is down from 5.8% 11/05 and 5.6% 08/07 per EMR. Unsure if pt truly has DM as current A1c and A1c history does not meet criteria for DM dx per ADA guidelines. DM education and CHO controlled diet not warranted. Will continue to follow. Addendum: 02/28/23 at [address] Amended: Links added.
[2023-02-28] MEDS ORDERED: dextrose 50%-water 50ml dispensing syringe IV PRN ×2 (17:25)
[2023-02-28] MEDS ORDERED: DEXTROSE 15 GM of carb/4 tabs (each vial/BOTTLE has 4 tablets) PO PRN ×2 (17:25)
[2023-02-28] MEDS ORDERED: glucagon, human recombinant 1mg kit SUBCUT PRN (17:25)
--- NOTE | 2023-02-28 18:41 | NUR ---
Problems reprioritized. Patient report given, questions answered & plan of care reviewed with Deja BECERRA.
--- NOTE | 2023-02-28 18:42 | NUR ---
Patient in room PCU 3013. I have received report from HERNAN Juárez and had the opportunity to ask questions and assume patient care. Patient laying in bed resting comfortably, just finished dinner. Refused insulin coverage at lunch, but would now like to be covered for dinner.
[2023-02-28] MEDS: insulin Lispro (HumaLOG) vial - multi-dose SQ SCH (19:33)
[2023-02-28] MEDS: insulin glargine (Lantus) pen - multi-dose SQ SCH (21:08)
--- NOTE | 2023-02-28 22:14 | NUR ---
Problems reprioritized. Patient report given, questions answered & plan of care reviewed with HERNAN Mendoza.
[2023-03-01] VITALS (12 sets, daily range): BP systolic 112–120; BP diastolic 70–78; PULSE 63–107; RESP 16–18; TEMP 97.3–98.2; O2SAT 93–98
[2023-03-01] MEDS: methylPREDNISolone sod succ 125mg/2ml vial IV SCH ×4 (01:52→19:02)
--- NOTE | 2023-03-01 06:00 | NUR ---
Patient in room ORTHO 4014. I have received report from Joy BECERRA and had the opportunity to ask questions and assume patient care.
--- NOTE | 2023-03-01 06:34 | NUR ---
Problems reprioritized. Patient report given, questions answered & plan of care reviewed with ANNEMARIE ARECHIGA.
[2023-03-01 07:41] LABS: BASOPHILS # (AUTO) 0.1 X10'3 (0-0.2); BASOPHILS % (AUTO) 0.3 % (0-1); EOSINOPHILS % (AUTO) 0 % (0-6); HEMATOCRIT 47.4 % (42.0-52.0); HEMOGLOBIN 16.2 g/dl (14.0-17.9); LYMPHOCYTES # (AUTO) 1.3 X10'3 (1.1-4.8); LYMPHOCYTES % (AUTO) 5.4 % (21-51); MEAN CORPUSCULAR HEMOGLOBIN 29.8 PG (27.0-31.0); MEAN CORPUSCULAR HGB CONC 34.2 g/dL (33.0-36.5); MEAN CORPUSCULAR VOLUME 87.3 FL (78-98); MEAN PLATELET VOLUME 7.5 FL (7.4-10.4); MONOCYTES # (AUTO) 0.5 X10'3 (0-0.9); MONOCYTES % (AUTO) 2.1 % (2-12); NEUTROPHILS # (AUTO) 22.2 X10'3 (1.8-7.7); NEUTROPHILS % (AUTO) 92.2 % (42-75); PLATELET COUNT 217 X10'3 (140-440); RED BLOOD COUNT 5.43 X10'6 (4.70-6.10); WHITE BLOOD COUNT 24.1 X10'3 (4.5-11.0)
[2023-03-01] MEDS: K and/or MAG REPLACEMENT MC SCH ×2 (08:00→20:00)
[2023-03-01] MEDS: docusate sod 100mg capsule PO SCH ×3 (08:00→20:00)
[2023-03-01 08:02] LABS: ALANINE AMINOTRANSFERASE 94 U/L (12-78); ALBUMIN 3.4 G/DL (3.4-5.0); ALKALINE PHOSPHATASE 100 IU/L (46-116); ANION GAP 7 (8-16); ASPARTATE AMINO TRANSFERASE 31 U/L (10-37); BILIRUBIN,TOTAL 1.5 MG/DL (0.1-1.0); BLOOD UREA NITROGEN 15 MG/DL (7-18); BUN/CREATININE RATIO 21.1 (10.0-20.0); CHLORIDE 104 MMOL/L (99-107); CREATININE 0.71 MG/DL (0.60-1.10); GLUCOSE 171 MG/DL (70-104); MAGNESIUM 2.4 MG/DL (1.5-2.4); POTASSIUM 4.5 MMOL/L (3.5-5.1); SODIUM 137 MMOL/L (135-145); TOTAL PROTEIN 6.7 G/DL (6.4-8.2); eCRCL 163 ML/MIN; eGFR > 90 ML/MIN
[2023-03-01] MEDS: ipratropium/albuterol 3ml nebule NEB PRN ×3 (08:16→19:29)
[2023-03-01] MEDS: azithromycin 250mg tablet PO SCH (08:29)
[2023-03-01] MEDS: enoxaparin 40mg/0.4ml syringe SUBCUT SCH (08:30)
[2023-03-01] MEDS: insulin Lispro (HumaLOG) vial - multi-dose SQ SCH ×3 (10:37→18:58)
[2023-03-01] MEDS: normal saline 1000ml 1,000 ML IV SCH (16:15)
--- NOTE | 2023-03-01 18:00 | NUR ---
I have reviewed and agree with interventions, assessments, and documentation by Scarlett Sweeney LVN.
--- NOTE | 2023-03-01 18:30 | NUR ---
Problems reprioritized. Patient report given, questions answered & plan of care reviewed with Joy BECERRA.
[2023-03-01] MEDS: HYDROcodone/acetaminophen 10/325mg tab PO PRN (19:24)
[2023-03-01] MEDS: insulin glargine (Lantus) pen - multi-dose SQ SCH (20:52)
[2023-03-02] VITALS (9 sets, daily range): BP systolic 102–110; BP diastolic 55–66; PULSE 65–80; RESP 14–18; TEMP 97.6–98.2; O2SAT 94–97
[2023-03-02] MEDS: methylPREDNISolone sod succ 125mg/2ml vial IV SCH ×2 (01:27→07:44)
[2023-03-02] MEDS: normal saline 1000ml 1,000 ML IV SCH ×2 (01:32→13:29)
--- NOTE | 2023-03-02 06:05 | NUR ---
RECEIVED REPORT FROM HERNAN ANDINO
--- NOTE | 2023-03-02 06:10 | NUR ---
Problems reprioritized. Patient report given, questions answered & plan of care reviewed with HERNAN REYNOLDS.
--- NOTE | 2023-03-02 06:29 | NUR ---
PT REFUSED 0600 VITAL.
[2023-03-02] MEDS: K and/or MAG REPLACEMENT MC SCH ×2 (07:36→20:00)
[2023-03-02] MEDS: azithromycin 250mg tablet PO SCH (07:43)
[2023-03-02] MEDS: enoxaparin 40mg/0.4ml syringe SUBCUT SCH (07:47)
[2023-03-02] MEDS: docusate sod 100mg capsule PO SCH ×2 (07:51→20:00)
[2023-03-02] MEDS: ipratropium/albuterol 3ml nebule NEB PRN ×3 (07:54→20:41)
[2023-03-02] MEDS: insulin Lispro (HumaLOG) vial - multi-dose SQ SCH ×3 (08:36→20:27)
--- NOTE | 2023-03-02 11:06 | NUR ---
MD AWARE OF PATIENT REFUSING VITAL SIGNS, REFUSING LABS, REFUSING TO TAKE OFF HIS OXYGEN AND REFUSING TO HAVE HIS TELE MONITOR TAKEN OFF, CONTINUE TO EDUCATE PATIENT AND ENCOURAGE COMPLIANCE
[2023-03-02] MEDS: predniSONE 20 mg tablet PO SCH (13:40)
--- NOTE | 2023-03-02 14:00 | NUR ---
someone called patient's room phone and the patient told the person on the phone that 'you have the wrong person, my name is [email or web address] hess' I am unsure who was on the other line but this patient is choosing to identifying himself as another person
--- NOTE | 2023-03-02 16:20 | NUR ---
PT IS REFUSING TO DEEP BREATHE AND COUGH AND REFUSING TO AMBULATE OUTSIDE OF HIS ROOM, CONTINUE TO EDUCATE AND ENCOURAGE COMPLIANCE
--- NOTE | 2023-03-02 18:20 | NUR ---
GAVE REPORT TO ANNEMARIE DECKER
--- NOTE | 2023-03-02 18:30 | NUR ---
Patient in room ORTHO 4014. I have received report from Andree BECERRA and had the opportunity to ask questions and assume patient care.
--- NOTE | 2023-03-02 19:45 | NUR ---
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
[2023-03-02] MEDS: HYDROcodone/acetaminophen 10/325mg tab PO PRN (20:29)
--- NOTE | 2023-03-02 20:30 | NUR ---
Agree with Scarlett Amf Mechanic assessment.
--- NOTE | 2023-03-02 21:12 | NUR ---
Patient in room ORTHO 4014. I have received report from Sandro SHARPE and had the opportunity to ask questions and assume patient care.
[2023-03-02] MEDS: insulin glargine (Lantus) pen - multi-dose SQ SCH (21:39)
--- NOTE | 2023-03-03 03:15 | NUR ---
Patient in room ORTHO 4014. I have received report from Scarlett and had the opportunity to ask questions and assume patient care.
--- NOTE | 2023-03-03 03:27 | NUR ---
Problems reprioritized. Patient report given, questions answered & plan of care reviewed with Martha BECERRA.
[2023-03-03 06:00] VITALS: BP 129/87; PULSE 69; RESP 18; TEMP 97.4; O2SAT 99
[2023-03-03 07:06] LABS: BASOPHILS % (AUTO) 0.1 % (0-1); EOSINOPHILS % (AUTO) 0.1 % (0-6); HEMATOCRIT 48.1 % (42.0-52.0); HEMOGLOBIN 16.3 g/dl (14.0-17.9); LYMPHOCYTES # (AUTO) 2.9 X10'3 (1.1-4.8); LYMPHOCYTES % (AUTO) 14.7 % (21-51); MEAN CORPUSCULAR HEMOGLOBIN 29.9 PG (27.0-31.0); MEAN CORPUSCULAR HGB CONC 33.8 g/dL (33.0-36.5); MEAN CORPUSCULAR VOLUME 88.4 FL (78-98); MEAN PLATELET VOLUME 7.5 FL (7.4-10.4); MONOCYTES # (AUTO) 1.2 X10'3 (0-0.9); NEUTROPHILS # (AUTO) 15.5 X10'3 (1.8-7.7); NEUTROPHILS % (AUTO) 79.1 % (42-75); PLATELET COUNT 196 X10'3 (140-440); RED BLOOD COUNT 5.45 X10'6 (4.70-6.10); RED CELL DISTRIBUTION WIDTH 13.2 % (11.5-14.5); WHITE BLOOD COUNT 19.6 X10'3 (4.5-11.0)
[2023-03-03 07:15] LABS: ALANINE AMINOTRANSFERASE 63 U/L (12-78); ALBUMIN 3.1 G/DL (3.4-5.0); ALKALINE PHOSPHATASE 96 IU/L (46-116); ANION GAP 7 (8-16); ASPARTATE AMINO TRANSFERASE 18 U/L (10-37); BILIRUBIN,TOTAL 0.8 MG/DL (0.1-1.0); BLOOD UREA NITROGEN 17 MG/DL (7-18); BUN/CREATININE RATIO 23.6 (10.0-20.0); CALCIUM 8.7 MG/DL (8.5-10.1); CHLORIDE 105 MMOL/L (99-107); CREATININE 0.72 MG/DL (0.60-1.10); GLUCOSE 105 MG/DL (70-104); MAGNESIUM 2.2 MG/DL (1.5-2.4); POTASSIUM 3.6 MMOL/L (3.5-5.1); SODIUM 138 MMOL/L (135-145); TOTAL CARBON DIOXIDE 26.4 MMOL/L (24-32); TOTAL PROTEIN 6.2 G/DL (6.4-8.2); eCRCL 160 ML/MIN; eGFR > 90 ML/MIN
[2023-03-03] MEDS: ipratropium/albuterol 3ml nebule NEB PRN (07:47)
[2023-03-03 07:48] VITALS: PULSE 64; RESP 16; O2SAT 98
[2023-03-03 07:57] VITALS: PULSE 65; RESP 16
[2023-03-03] MEDS: K and/or MAG REPLACEMENT MC SCH (08:00)
[2023-03-03] MEDS: docusate sod 100mg capsule PO SCH (08:00)
[2023-03-03 08:34] VITALS: RESP 18; O2SAT 99
[2023-03-03] MEDS: azithromycin 250mg tablet PO SCH (08:34)
[2023-03-03] MEDS: predniSONE 20 mg tablet PO SCH (08:34)
[2023-03-03] MEDS: enoxaparin 40mg/0.4ml syringe SUBCUT SCH (08:38)
[2023-03-03] MEDS: HYDROcodone/acetaminophen 10/325mg tab PO PRN (10:54)
[2023-03-03 12:07] VITALS: BP 112/69; PULSE 61; RESP 16; TEMP 97.9; O2SAT 96
[2023-03-03] MEDS ORDERED: PRED20TA PO (12:44)
[2023-03-03] MEDS ORDERED: LEVO-65 PO (12:44)
--- NOTE | 2023-03-03 13:24 | NUR ---
Discharge has been done, patient requested this junior technical writer check his blood sugar level prior to discharging at 13:30.
--- NOTE | 2023-03-03 13:56 | NUR ---
Reviewed discharge instructions and medications with patient. Patient verbalized understanding. Patient is able to dress himself and gather his belongings. Patient stated his car was outside and he would be driving himself home. Patient is alert, oriented and does not have any complaints of pain or SOB at this time. Patient was wheeled downstairs to be discharged.
== END 2023-03-03 13:55 | disposition home or self-care (01) | DRG 140 ==
LOC: ER 17:41 → ED HOLD 20:41 → EDBEDREQ 02-28 05:12 → PCU 3S 02-28 07:46 → ORTHO 4S 02-28 22:24
PROVIDERS: ADMIT Internal Medicine; ATTEND Internal Medicine
DX: J44.1 Chronic obstructive pulmonary disease with (acute) exacerbation (principal); J45.901 Unspecified asthma with (acute) exacerbation; G89.29 Other chronic pain; I10 Essential (primary) hypertension; Z20.822 Contact with and (suspected) exposure to COVID-19; M54.9 Dorsalgia, unspecified; E87.6 Hypokalemia; T38.0X5A Adverse effect of glucocorticoids and synthetic analogues, initial encounter; D72.829 Elevated white blood cell count, unspecified; Z88.5 Allergy status to narcotic agent; Z79.899 Other long term (current) drug therapy; Z88.8 Allergy status to other drugs, medicaments and biological substances; Z91.199 Patient's noncompliance with other medical treatment and regimen due to unspecified reason; Y92.89 Other specified places as the place of occurrence of the external cause; Z59.00 Homelessness unspecified
CPT/HCPCS: 36415; 71045; 80053; 82948; 83735; 83880; 84484; 85007; 85025; 87081; 87811; 94640; 94760; 96374; 99285; A4615; A4620; A6258; G0378; J1650; J1815; J2405; J2930; J7030; J7512

== ENCOUNTER 2023-03-17 11:43 | Emergency (ER) | payer MEDICAID ==
[~2023-03-17] VITALS: Ht 185.4 cm; Wt 94.5 kg
[~2023-03-17 11:43] MED LIST changes: -LEVO-65 PO; -PRED10TA23 PO
[2023-03-17 12:04] VITALS: TEMP 100.2
[2023-03-17] MEDS ORDERED: acetaminophen 325mg tablet PO ONE (14:30)
[2023-03-17 14:34] LABS: BASOPHILS % (AUTO) 0.6 % (0-1); EOSINOPHILS # (AUTO) 0.4 X10'3 (0-0.9); EOSINOPHILS % (AUTO) 4.3 % (0-6); HEMATOCRIT 48.2 % (42.0-52.0); HEMOGLOBIN 16.7 g/dl (14.0-17.9); LYMPHOCYTES # (AUTO) 0.6 X10'3 (1.1-4.8); LYMPHOCYTES % (AUTO) 6.6 % (21-51); MEAN CORPUSCULAR HEMOGLOBIN 30.2 PG (27.0-31.0); MEAN CORPUSCULAR HGB CONC 34.6 g/dL (33.0-36.5); MEAN CORPUSCULAR VOLUME 87.3 FL (78-98); MEAN PLATELET VOLUME 7.2 FL (7.4-10.4); MONOCYTES # (AUTO) 0.7 X10'3 (0-0.9); MONOCYTES % (AUTO) 8.3 % (2-12); NEUTROPHILS # (AUTO) 6.7 X10'3 (1.8-7.7); NEUTROPHILS % (AUTO) 80.2 % (42-75); PLATELET COUNT 154 X10'3 (140-440); RED BLOOD COUNT 5.52 X10'6 (4.70-6.10); RED CELL DISTRIBUTION WIDTH 13.1 % (11.5-14.5); WHITE BLOOD COUNT 8.3 X10'3 (4.5-11.0)
[2023-03-17 14:53] LABS: ALANINE AMINOTRANSFERASE 47 U/L (12-78); ALBUMIN 3.8 G/DL (3.4-5.0); ALBUMIN/GLOBULIN RATIO 1.3 (1.1-1.5); ALKALINE PHOSPHATASE 108 IU/L (46-116); ANION GAP 7 (8-16); ASPARTATE AMINO TRANSFERASE 23 U/L (10-37); BILIRUBIN,TOTAL 2.8 MG/DL (0.1-1.0); BLOOD UREA NITROGEN 10 MG/DL (7-18); BUN/CREATININE RATIO 13.5 (10.0-20.0); CALCIUM 9.1 MG/DL (8.5-10.1); CHLORIDE 102 MMOL/L (99-107); CREATININE 0.74 MG/DL (0.60-1.10); GLUCOSE 103 MG/DL (70-104); POTASSIUM 3.7 MMOL/L (3.5-5.1); SODIUM 136 MMOL/L (135-145); TOTAL CARBON DIOXIDE 26.9 MMOL/L (24-32); TOTAL PROTEIN 6.8 G/DL (6.4-8.2); eCRCL 156 ML/MIN; eGFR > 90 ML/MIN
[2023-03-17 15:14] VITALS: BP 113/73; PULSE 90; RESP 18; O2SAT 94
== END 2023-03-17 16:09 | disposition home or self-care (01) ==
LOC: ER 11:44
DX: U07.1 COVID-19 (principal); R42 Dizziness and giddiness; I10 Essential (primary) hypertension; J45.909 Unspecified asthma, uncomplicated; G89.29 Other chronic pain; Z87.891 Personal history of nicotine dependence; Z72.89 Other problems related to lifestyle; Z79.899 Other long term (current) drug therapy; Z88.8 Allergy status to other drugs, medicaments and biological substances; Z91.011 Allergy to milk products
CPT/HCPCS: 36415; 71045; 80053; 85025; 99284